=== PATIENT | female | born 1995 | race Caucasian/White ===

== ENCOUNTER 2022-09-27 13:07 | Outpatient (REF) | payer OTHER, SELFPAY | END 2022-09-27 13:08 | disposition home or self-care (01) | LOC: HO.LNP 13:07 | PROVIDERS: Visit Provider Advanced Practice Midwife | DX: Z30.432 Encounter for removal of intrauterine contraceptive device (principal) | CPT/HCPCS: 58301; 88142 ==

== ENCOUNTER → 2022-10-30 09:06 | Outpatient (BNVA) | payer OTHER, SELFPAY | PROVIDERS: Visit Provider Advanced Practice Midwife | DX: Z32.01 Encounter for pregnancy test, result positive (principal) | CPT/HCPCS: 81025; 99212 ==

== ENCOUNTER 2022-11-01 14:01 | Outpatient (REF) | payer OTHER, SELFPAY ==
--- NOTE | ~2022-11-01 | US_ITS ---
EXAMINATION: US OBSTETRICAL ULTRASOUND CLINICAL INFORMATION: ; for size and dates. COMPARISON: Obstetrical ultrasound dated 09/21/2016.. LMP: 09/12/2022. Gestational age by maternal dates is 7 weeks and 1 day. Estimated date of delivery by maternal dates is 06/19/2023. TECHNIQUE: Ultrasound of the maternal pelvis is performed using transabdominal transducer. M-mode Doppler is also performed. FINDINGS: There is a single intrauterine gestational sac with visible yolk sac, embryo/fetus, and cardiac activity. There is no significant subchorionic hemorrhage or hematoma. HR: 109 beats per minute. CRL (crown rump length): 0.42 cm (6 weeks and 1 day +/- 4 days). SADI (estimated date of delivery): 06/26/2023. +/- 4 days. MATERNAL ADNEXA: The right maternal ovary measures 4.5 x 2.3 x 1.9 cm. The left maternal ovary is not visualized. There is no significant maternal adnexal mass. No maternal pelvic ascites. US/US OB <= 14 weeks fetus IMPRESSION: 1. Single intrauterine gestation with ultrasound gestational age of 6 weeks and 1 day +/- 4 days. 2. Estimated date of delivery is 06/26/2023 +/- 4 days. 3. No maternal adnexal mass or pelvic ascites.
== END 2022-11-01 14:02 | disposition home or self-care (01) ==
LOC: HO.HMGCX 14:01
PROVIDERS: Visit Provider Advanced Practice Midwife
DX: Z36.87 Encounter for antenatal screening for uncertain dates (principal); Z32.01 Encounter for pregnancy test, result positive
CPT/HCPCS: 76801

== ENCOUNTER → 2022-11-09 13:43 | Outpatient (BNVA) | payer OTHER, SELFPAY | PROVIDERS: Visit Provider Advanced Practice Midwife | DX: O26.91 Pregnancy related conditions, unspecified, first trimester (principal); Z3A.00 Weeks of gestation of pregnancy not specified | CPT/HCPCS: 99212 ==

== ENCOUNTER → 2022-11-26 14:04 | Outpatient (BNVA) | payer OTHER, SELFPAY | PROVIDERS: Visit Provider Advanced Practice Midwife | DX: O26.91 Pregnancy related conditions, unspecified, first trimester (principal); Z3A.09 9 weeks gestation of pregnancy | CPT/HCPCS: 99212 ==

== ENCOUNTER 2022-12-07 12:48 | Outpatient (REF) | payer OTHER, SELFPAY ==
[2022-12-07 14:47] LABS: Hematocrit 36.1 % (37.0-47.0); Hemoglobin 12.2 g/dl (12.0-16.0); Mean Corpuscular HGB Conc 33.8 g/dl (31.0-35.0); Mean Corpuscular Hemoglobin 29.5 pg (27.0-33.0); Mean Corpuscular Volume 87.4 fL (80.0-98.0); Platelet Count 238 X10*3/uL (160-400); Red Blood Count 4.13 X10*6/uL (4.20-5.50); Red Cell Distribution Width 13.2 % (11.0-16.0); White Blood Count 9.8 X10*3/uL (4.8-10.8)
[2022-12-07 15:03] LABS: Amphetamine Screen Urine Not Detected (Not Detect); Barbiturates, Urine Not Detected (Not Detect); Benzodiazepines Screen Urine Not Detected (Not Detect); Cannabinoid Screen Urine Not Detected (Not Detect); Cocaine Screen Urine Not Detected (Not Detect); Fentanyl, urine Not Detected (Not Detect); Opiate Screen Urine Not Detected (Not Detect); Phencyclidine Screen Urine Not Detected (Not Detect)
[2022-12-07 16:13] LABS: Glucose 1 Hour PP 50gm Dose 81 mg/dL (60-140)
[2022-12-10 03:49] LABS: Syphilis Screen Nonreactive (Nonreactive)
[2022-12-10 04:07] LABS: HBsAGNum1 0.38 S/CO (0.00-0.99); HIV AB/AG Nonreactive (Nonreactive); HIV Num 1 0.05 S/CO (0.00-0.99); Hepatitis B Surface Antigen Negative (Negative); ~HepC Num1 0.11 S/CO (0.00-0.79); ~Hepatitis C Antibody Nonreactive (Nonreactive)
[2022-12-11 06:04] LABS: Rubella IgG Antibody 4.24 Index
[2022-12-17 14:58] LABS: CF Ethnicity NG; Cystic Fibrosis NEGATIVE (NEGATIVE)
== END 2022-12-07 12:49 | disposition home or self-care (01) ==
LOC: HO.LAB 12:48
PROVIDERS: Visit Provider Advanced Practice Midwife
DX: Z32.01 Encounter for pregnancy test, result positive (principal)
CPT/HCPCS: 80307; 81220; 82950; 85027; 86762; 86780; 86787; 86803; 86850; 86900; 87086; 87340; 87389

== ENCOUNTER 2022-12-14 13:32 | Outpatient (REF) | payer OTHER, SELFPAY ==
[2022-12-14 17:14] LABS: CT PCR NOT DETECTED (Not Detect.); NG PCR NOT DETECTED (Not Detect.)
[2022-12-15 10:13] LABS: BV Int Neg Control Negative (Negative); BV Int Pos Control Positive (Positive)
== END 2022-12-14 13:33 | disposition home or self-care (01) ==
LOC: HO.LNP 13:32
PROVIDERS: Visit Provider Advanced Practice Midwife
DX: O26.91 Pregnancy related conditions, unspecified, first trimester (principal)
CPT/HCPCS: 0353U; 81003; 87480; 87510; 87660; 99212

== ENCOUNTER → 2023-01-15 10:41 | Outpatient (BNVA) | payer OTHER, SELFPAY | PROVIDERS: Visit Provider Advanced Practice Midwife | DX: O21.0 Mild hyperemesis gravidarum (principal); O26.892 Other specified pregnancy related conditions, second trimester; R19.7 Diarrhea, unspecified; Z3A.16 16 weeks gestation of pregnancy; Z83.3 Family history of diabetes mellitus | CPT/HCPCS: 81003; 99212 ==

== ENCOUNTER 2023-02-13 10:25 | Outpatient (REF) | payer OTHER, SELFPAY ==
[2023-02-13 13:13] LABS: Appearance Urine Turbid; Color Urine Yellow; Glucose Urine UA Negative (Negative); Leukocyte Esterase Urine Small (1+) (Negative); Nitrite Urine Negative (Negative); PH 6.5 (5.0-9.0); Specific Gravity - Urine 1.015 (1.005-1.025); UMIC TRIGGER UACC YES; Urine Blood Negative (Negative); Urine Ketones Negative (Negative); Urine Protein Negative (Neg-Trace)
[2023-02-13 13:23] LABS: Bacteria Urine 1+ (None Seen); Hyaline Casts Urine 0-2 /LPF (0-2); RBC Urine 0-2 /HPF (0-2); UACC Culture Trigger YES
== END 2023-02-13 10:26 | disposition home or self-care (01) ==
LOC: HO.LAB 10:25
PROVIDERS: Visit Provider Advanced Practice Midwife
DX: O26.892 Other specified pregnancy related conditions, second trimester (principal); M54.50 Low back pain, unspecified; Z3A.21 21 weeks gestation of pregnancy
CPT/HCPCS: 81001; 81003; 87086; 99212

== ENCOUNTER 2023-02-14 13:19 | Outpatient (REF) | payer OTHER, SELFPAY ==
[2023-02-14 14:10] LABS: Appearance Urine Clear; Color Urine Yellow; Glucose Urine UA Negative (Negative); Leukocyte Esterase Urine Moderate (2+) (Negative); Nitrite Urine Negative (Negative); UMIC TRIGGER UACC YES; Urine Blood Negative (Negative); Urine Ketones Negative (Negative); Urine Protein Negative (Neg-Trace)
[2023-02-14 14:19] LABS: Bacteria Urine 2+ (None Seen); Hyaline Casts Urine 0-2 /LPF (0-2); RBC Urine 0-2 /HPF (0-2); UACC Culture Trigger YES; WBC Urine 21-50 /HPF (0-5)
== END 2023-02-14 13:20 | disposition home or self-care (01) ==
LOC: HO.LAB 13:19
PROVIDERS: PCP Internal Medicine; Visit Provider Advanced Practice Midwife
DX: O26.899 Other specified pregnancy related conditions, unspecified trimester (principal); R10.2 Pelvic and perineal pain; M54.50 Low back pain, unspecified
CPT/HCPCS: 81001; 81003

== ENCOUNTER → 2023-03-13 09:17 | Outpatient (BNVA) | payer OTHER, SELFPAY | PROVIDERS: PCP Internal Medicine; Visit Provider Advanced Practice Midwife | DX: O36.5920 Maternal care for other known or suspected poor fetal growth, second trimester, not applicable or unspecified (principal); Z3A.25 25 weeks gestation of pregnancy | CPT/HCPCS: 81003; 99212 ==

== ENCOUNTER 2023-04-05 13:20 | Outpatient (REF) | payer OTHER, SELFPAY | END 2023-04-05 13:21 | disposition home or self-care (01) | LOC: HO.LAB 13:20 | PROVIDERS: PCP Internal Medicine; Visit Provider Advanced Practice Midwife | DX: Z34.93 Encounter for supervision of normal pregnancy, unspecified, third trimester (principal); Z3A.28 28 weeks gestation of pregnancy | CPT/HCPCS: 99212 ==

== ENCOUNTER 2023-04-05 13:27 | Outpatient (AMB) | payer OTHER, SELFPAY ==
[2023-04-05 13:44] VITALS: BMI 25.6
--- NOTE | 2023-04-05 13:44 | A.OFFVISPN_ITS ---
Intake Vital Signs 04/05/23 13:44 04/05/23 14:11 Height 5 ft 5 in Weight 154 lb BMI 25.6 BP 108/60 Intake Visit Reasons: FOREST Brim Raiser Required: No Information Interpreted: non-clinical & clinical Accompanied by: Daughter Allergies No Known Allergies [No Known Allergies*] Allergy (Verified 04/05/23 13:44) Patient : Yes PFSH Medical History (Updated 04/05/23 @ 14:12 by Gwen Kiser) Cleft lip and palate Diarrhea during Encounter for supervision of normal in third trimester Encounter for supervision of other normal in second trimester FH: diabetes mellitus Surgical History (Updated 01/15/23 @ 11:00 by Gwen Kiser) History of repair of cleft lip History of repair of congenital cleft palate Nausea/vomiting in Family History Maternal Grandmother Breast cancer Maternal Grandfather No problems noted. Father Diabetes mellitus CAD (coronary artery disease) Myocardial infarction Mother Bipolar 1 disorder, depressed, full remission Fibromyalgia Social History Household Members: Significant Other, Family and Children Both parents involved: Yes Caregiver staying overnight: No Housing: House Are you a primary medicare insurance specialist to a significant other at home: No Do you presently have visiting nurse or other home services: No 75 years or older and lives alone: No Alcohol intake: never Patient Tobacco Use Status: Never used Tobacco Agree to transfusion: Yes service: No Current occupational status: employed 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 Date GA/Weeks Outcome Route Wt Inf Gender Labor Adeline Anesthesia Location Provider Complicate 10/04/16 41 live - full term 6 lb 15 oz Female 11 hrs ot her [facility] JUSTINE Ruggiero none Questionnaire Cantrall Depression Cantrall Depression Scale I have been able to laugh and see the funny side of things: Not at all I have looked forward with enjoyment to things: As much as I ever did I have blamed myself unnecessarily when things went wrong: Not very often I have been anxious or worried for no reason: Yes, sometimes I have felt scared of panicky for no very good reason at all: No, not at all Things have been getting on top of me: No, most of the time I have coped quite well I have been so unhappy that I have had difficulty sleeping: Not very often I have felt sad or miserable: Not very often I have been so unhappy that I have been crying: Only occasionally The thought of harming myself has occurred to me: Never 10 Visit SADI Calculator Estimated Delivery Date Method Current WG Current Estimate 06/26/23 Ultrasound #1 28w 2d Other Estimates 06/19/23 LMP (Certain) 29w 2d 06/27/23 Ultrasound #2 28w 1d Expected Delivery Route/Plan Specific Issues/Plans EDC: 06/26/23 O positive Problem List: Hx cleft lip/palate FH DM-early glucose=81 Fibroids on FAS: pending results... NT: nl First trimester screen: negative FAS: WIC: enrolled Vaccination status: COVID: 1 dose, Covid in 09/2021 Tdap: Flu: Social hx: lives w/husb, 6yo daughter. 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-?-?-?-?- 02/13/23 -?-?-?-?-?-?-?-?-?-?-?-?- 21w 0d 147 lb (+8 lb) 22 150 100/60 147 lb -?-?-?-?-?-?-?-?-?-?-?-?- 03/13/23 -?-?-?-?-?-?-?-?-?-?-?-?- 25w 0d 149 lb (+10 lb) 22 140 active 112/64 149 lb -?-?-?-?-?-?-?-?-?-?-?-?- 04/05/23 -?-?-?-?-?-?-?-?-?-?-?-?- 28w 2d 154 lb (+15 lb) 26 140 active 108/60 154 lb -?-?-?-?-?-?-?-?-?-?-?-?- Notes Visit Date: 04/05/23 Last Updated by: Yulia Han CNM Note author: Yulia Han CNM/[facility] 28.2 wk FOREST. Feeling well. Taking PNV. Hydrating well and good appetite Good FM, no LOF, VB or abd pain. Reports lumbar pain. Denies lifting anything strenuous. EPDS=7 Discussed: PTL - LOF, VB, abd pain . TDaP handout given. lab work. Recommend pelvic tilt exercises/stretches, heat, massage, consider PT if no improvement. Advised to eat small frequent meals and stay cool and hydrated. PEC - headaches: not resolved with 2 regular strength Tylenol doses, visual disturbances warnings and when to call for further evaluation. Reviewed when to call for any VB, LOF, contractions, Kick counts reviewed and when to call for any decreased FM. Encouraged patient to sign up for patient portal. Discussed to call the service here for any emergencies/deliveries to be directed to [facility]. Visit Date: 03/13/23 Last Updated by: Yulia Han CNM Note author: Yulia Han CNM/Gwen Kiser medical assistant prn 25 wk FOREST. Feeling well. Taking PNV. Hydrating well and good appetite Good FM, no LOF, VB or abd pain. Reports possibly being sick occasional nausea/vomiting with diarrhea. Denies being sensitive to diary or gluten or flu-like symptoms. Discussed: PTL - LOF, VB, abd pain. Schedule growth US-SFD. FAS report from [facility] requesting. OB appointment in 3 weeks and glucose testing same day. BRAT diet for nausea Advised to eat small frequent meals and stay cool and hydrated. Recommend reading and online classes/research for educational purposes. PEC - headaches: not resolved with 2 regular strength Tylenol doses, visual disturbances warnings and when to call for further evaluation. Reviewed when to call for any VB, LOF, contractions, Kick counts reviewed and when to call for any decreased FM. Discussed to call the service here for any emergencies/deliveries to be directed to [facility]. Visit Date: 02/13/23 Last Updated by: Yulia Han CNM Note author: Yulia Han CNM/Gwen Kiser medical assistant prn 21 wk FOREST. Feeling well. Taking PNV. Good FM, no LOF, VB. She recently had a US last wk., report not available. She is experiencing occasional abdominal cramping and lower back pain. Denies Comal Betancourt. Admits to needing to hydrate better today. Discussed: PTL - LOF, VB, abd pain. Recommend 3 glasses 8 ounces of water to help with abdominal cramping, hot weather this week-stay cool, increase fluids. If cramping gets worse report to [facility]. Reviewed recent lab results. Advised to eat healthy including small frequent meals every 2 hrs and stay hydrated in hot weather. PEC - headaches: not resolved with 2 regular strength. Tylenol doses, visual disturbances warnings and when to call for further evaluation. Reviewed when to call for any VB, LOF, contractions, Kick counts reviewed and when to call for any decreased FM. Discussed to call the service here for any emergencies/deliveries to be directed to [facility]. Unable to void, plan urine in lab today for clean catch. RTO 4 wks, prn. Visit Date: 01/15/23 Last Updated by: Yulia Han CNM Note author: Yulia Han CNM/Gwen Kiser medical assistant prn 16.6wk FOREST. Feeling well. Taking PNV. quickening noted, no LOF, VB or abd pain. She reports over the past weekend she had nausea, vomiting and diarrhea with slight abdominal cramping. Appetite slowly improving. No other family members were sick. Staying well hydrated. Call office if not tolerating fluids and not urinating. FAS ordered. PEC - headaches: not resolved with 2 regular strength Tylenol doses, visual disturbances warnings and when to call for further evaluation. Reviewed when to call for any VB, LOF, contractions, Kick counts reviewed and when to call for any decreased FM. Encouraged patient to sign up for patient portal. Discussed to call the service here for any emergencies/deliveries to be directed to [facility]. RTO 4wks. Visit Date: 12/14/22 Last Updated by: Yuliana Lawrence CNM Patient is here at 12 weeks and 2 days for her new OB physical. 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 She got the next cycle and we are using the SADI by her for early ultrasound which gave a 1 week different SADI we are using the 06/26/2023 SADI. She had her nuchal translucency ultrasound done a week ago and that was normal the 1st trimester screening is still pending. All of her lab work was reviewed and is all normal she is not anemic her blood type is O-positive her early glucose was 81. There nausea is finally starting to get better she did throw up a little bit this morning but the previous 3 morning she did not so she is feeling better about that. She did score 7 on the EPDS screening today but she does not think she has any real worries or concerns she thinks her worries are actually the normal ones about what it will be like to have another baby and manage everything.. PE was done there was slight bleeding when the speculum opened and touched the side of her cervix from the surface capillaries. I did show it to her so she would not be worried about where at we had come from. Her cervix did not a ppear unduly friable just normal for per early . Uterus is approximately 12 weeks size but slightly retroverted. Patient states she did not even show with her previous in till 18-20 weeks. Anticipate the same this time. Will be ordering her anatomy scan ultrasound in approximately 7 weeks (6-8) that will be done at [facility]. RTC 4 weeks. Visit Date: 11/26/22 Last Updated by: Ayanna Miranda Nancy is here for nurse intake appt. She is a pleasant, 27 yo in good health, with LMP 09/12/22 SADI by dates 06/21/23. US on 11/01/22 at 6w1d gives SADI of 06/26/23 and GA by US today of 9w5d. FHT found 144. 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 She also has FH of diabetes and a 1 hr glucose has been ordered. Maternal grandmother d/t breast cancer, paternal grandfather d/t lung cancer. Pt's Mom has fibromyalgia and bipolar disorder. Dad has CAD, [place], bipolar disorder. Nancy and her significant other of 8 years are excited about the . Her partner is the FOB of both pregnancies. Their daughter is 6 yo. She reports her SO is supportive and she denies any h/o domestic abuse. Nancy takes her PNV in the evening. She does have nausea and vomiting in the morning which she reports is beginning to resolve. We discussed small frequent meals and trying dry crackers at first awakening before getting out of bed to help nausea. She declined Unisom/B6. Pt reports she has not had Covid-19 and has been vaccinated x1, no boosters. Her BMI is 27.1 and prepregnancy weight is 139 lbs. OB PE was scheduled for 12/14/22, labs with early glucose ordered as well [place] [facility] [place] She is aware that she [place] [facility] [place] Pt was given the folder. We discussed danger signs, MD coverage 08/04 and how to reach MD after hours. First trimester education was also reviewed. Pt verbalizes understanding and agrees with plan. No further questions at this time. Assessment & Plan Assessment & Plan (1) Encounter for supervision of normal in third trimester: Code(s): Z34.93 - Encounter for supervision of normal , unspecified, third trimester Category: Medical Coding Level of Care Code [place] Diagnoses Encounter for supervision of normal in third trimester Z34.93
[2023-04-05 14:11] VITALS: BP 108/60
== END 2023-04-05 14:27 | disposition home or self-care (01) ==
LOC: HO.HWS 13:27
PROVIDERS: PCP Internal Medicine; Visit Provider Advanced Practice Midwife
DX: Z34.93 Encounter for supervision of normal pregnancy, unspecified, third trimester (principal)
CPT/HCPCS: 25942; S3005

== ENCOUNTER 2023-04-11 10:41 | Outpatient (REF) | payer OTHER, SELFPAY ==
[2023-04-11 12:00] LABS: Appearance Urine Cloudy; Color Urine Yellow; Glucose Urine UA Negative (Negative); Leukocyte Esterase Urine Small (1+) (Negative); Nitrite Urine Negative (Negative); PH 8.5 (5.0-9.0); UMIC TRIGGER UACC YES; Urine Blood Negative (Negative); Urine Ketones Negative (Negative); Urine Protein Negative (Neg-Trace)
[2023-04-11 12:15] LABS: Bacteria Urine None Seen (None Seen); Hyaline Casts Urine 0-2 /LPF (0-2); RBC Urine 0-2 /HPF (0-2); UACC Culture Trigger YES; WBC Urine 0-5 /HPF (0-5)
[2023-04-11 13:57] LABS: Hematocrit 35.6 % (37.0-47.0); Hemoglobin 11.9 g/dl (12.0-16.0); Mean Corpuscular HGB Conc 33.4 g/dl (31.0-35.0); Mean Corpuscular Hemoglobin 30.4 pg (27.0-33.0); Mean Platelet Volume 9.9 fL (9.4-12.3); Platelet Count 257 X10*3/uL (160-400); Red Blood Count 3.91 X10*6/uL (4.20-5.50); Red Cell Distribution Width 13.8 % (11.0-16.0)
[2023-04-11 14:27] LABS: Glucose 1 Hour PP 50gm Dose 71 mg/dL (60-140)
[2023-04-11 14:45] LABS: Syphilis Screen Nonreactive (Nonreactive)
== END 2023-04-11 10:42 | disposition home or self-care (01) ==
LOC: HO.LAB 10:41
PROVIDERS: Visit Provider Advanced Practice Midwife
DX: Z34.82 Encounter for supervision of other normal pregnancy, second trimester (principal)
CPT/HCPCS: 36415; 81001; 81003; 82950; 85027; 86780; 87086

== ENCOUNTER 2023-04-19 10:45 | Outpatient (AMB) | payer OTHER, SELFPAY ==
--- NOTE | 2023-04-19 10:54 | MHC.OFFVISPN ---
Intake Vital Signs 04/19/23 10:59 Height 5 ft 5 in Weight 153 lb BMI 25.5 BP 108/60 Intake Visit Reasons: FOREST Intake Note: The patient agreed to use of a medical radiation tech during this encounter. Scribed for STEPHANIE Whipple by Elen Salas medical radiation tech, on 04/19/2023 at 11:05 am EST Compounder Helper Required: No Information Interpreted: non-clinical & clinical Accompanied by: Daughter Allergies No Known Allergies [No Known Allergies*] Allergy (Verified 04/19/23 10:59) Patient : Yes [facility] Medical History (Updated 04/19/23 @ 14:01 by Elen Salas) Cleft lip and palate Diarrhea during Encounter for supervision of normal in third trimester Encounter for supervision of other normal in second trimester FH: diabetes mellitus Surgical History (Updated 01/15/23 @ 11:00 by Gwen Kiser) History of repair of cleft lip History of repair of congenital cleft palate Nausea/vomiting in Family History Maternal Grandmother Breast cancer Maternal Grandfather No problems noted. Father Diabetes mellitus CAD (coronary artery disease) Myocardial infarction Mother Bipolar 1 disorder, depressed, full remission Fibromyalgia Social History Household Members: Significant Other, Family and Children Both parents involved: Yes Caregiver staying overnight: No Housing: House Are you a primary healthcare facility administrator to a significant other at home: No Do you presently have visiting nurse or other home services: No 75 years or older and lives alone: No Alcohol intake: never Patient Tobacco Use Status: Never used Tobacco Agree to transfusion: Yes service: No Current occupational status: employed 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 Date GA/Weeks Outcome Route Wt Inf Gender Labor Adeline Anesthesia Location Provider Complicate 10/04/16 41 live - full term 6 lb 15 oz Female 11 hrs other [facility] [place] JUSTINE Ruggiero none Visit SADI Calculator Estimated Delivery Date Method Current WG Current Estimate 10/11/23 Ultrasound #1 30w 2d Other Estimates 06/19/23 LMP (Certain) 31w 2d 06/27/23 Ultrasound #2 30w 1d Expected Delivery Route/Plan Specific Issues/Plans EDC: 06/26/23 O positive Problem List: 1. Hx cleft lip/palate 2. FH DM-early glucose=81 3. Fibroids 4. SFD-US 03/18/23 41% growth, plan repeat... NT: nl First trimester screen: negative FAS: EIF noted, plan 3rd trimester follow US. WIC: enrolled Vaccination status: COVID: 1 dose, Covid in 09/2021 Tdap: given 04/19/23 Flu: Social hx: lives w/husb, 6yo daughter. 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 Labor support: Max plan: natrural, used Nitrous oxide w/her first control: OB Visit Log Initial Weight: 139 lb Date <del>?</del> EGA Weight Gest Week Fundal Ht Present FHR move Efface % Edema BP PrePreg We Weight GTT <del>?</del> Glucose LV Protein Blood Type 11/26/22 <del>?</del> 9w 5d 139 lb 2 oz (+2 oz) 144 139 lb 2 oz <del>?</del> 12/14/22 <del>?</del> 12w 2d 139 lb (+0 oz) 12 160 114/60 139 lb <del>?</del> 01/15/23 <del>?</del> 16w 6d 137 lb (-2 lb) 16 150 110/74 137 lb <del>?</del> 02/13/23 <del>?</del> 21w 0d 147 lb (+8 lb) 22 150 100/60 147 lb <del>?</del> 03/13/23 <del>?</del> 25w 0d 149 lb (+10 lb) 22 140 active 112/64 149 lb <del>?</del> 04/05/23 <del>?</del> 28w 2d 154 lb (+15 lb) 26 140 active 108/60 154 lb <del>?</del> 04/19/23 <del>?</del> 30w 2d 153 lb (+14 lb) 27 150 active 108/60 153 lb <del>?</del> Notes Visit Date: 04/19/23 Last Updated by: Yulia Han CNM Note author: Yulia Han CNM/Elen Salas, medical radiation tech 30.2 wk FOREST. Taking PNV. Good FM. Denies LOF, VB or abd pain. Doing well with no concerns. Good appetite and stays well hydrated. She had Growth US done on 04/07/23, records not available. States she is supposed to have repeat US done due to a bright spot noted. Discussed: PTL-LOF, VB, abd pain, ctx and when to call for further evaluation. PEC - headaches: not resolved with 2 regular strength Tylenol doses, visual disturbances warnings and when to call for further evaluation.? FKC: have something to eat and drink, should have 5 kicks in 1hr or 10 kicks in 2 hrs, if not call immediately for evaluation. Staying well hydrated, drink 8-10 glasses of water per day. Tdap done today. Growth US ordered for small for dates, include eval for EIF 3rd trimester follow up. RTO in 2 weeks. Visit Date: 04/05/23 Last Updated by: Yulia Han CNM Note author: Yulia Han CNM/Gwen Kiser medical radiation tech 28.2 wk FOREST. Feeling well. Taking PNV. Hydrating well and good appetite Good FM, no LOF, VB or abd pain. Reports lumbar pain. Denies lifting anything strenuous. EPDS=7 Discussed: PTL - LOF, VB, abd pain . TDaP handout given. lab work. Recommend pelvic tilt exercises/stretches, heat, massage, consider PT if no improvement. Advised to eat small frequent meals and stay cool and hydrated. PEC - headaches: not resolved with 2 regular strength Tylenol doses, visual disturbances warnings and when to call for further evaluation. Reviewed when to call for any VB, LOF, contractions, Kick counts reviewed and when to call for any decreased FM. Encouraged patient to sign up for patient portal. Discussed to call the service here for any emergencies/deliveries to be directed to [facility]. Visit Date: 03/13/23 Last Updated by: Yulia Han CNM Note author: Yulia Han CNM/Gwen Kiser medical radiation tech 25 wk FOREST. Feeling well. Taking PNV. Hydrating well and good appetite Good FM, no LOF, VB or abd pain. Reports possibly being sick occasional nausea/vomiting with diarrhea. Denies being sensitive to diary or gluten or flu-like symptoms. Discussed: PTL - LOF, VB, abd pain. Schedule growth US-SFD. FAS report from [facility] requesting. OB appointment in 3 weeks and glucose testing same day. BRAT diet for nausea Advised to eat small frequent meals and stay cool and hydrated. Recommend reading and online classes/research for educational purposes. PEC - headaches: not resolved with 2 regular strength Tylenol doses, visual disturbances warnings and when to call for further evaluation. Reviewed when to call for any VB, LOF, contractions, Kick counts reviewed and when to call for any decreased FM. Discussed to call the service here for any emergencies/deliveries to be directed to [facility]. Visit Date: 02/13/23 Last Updated by: Yulia Han CNM Note author: Yulia Han CNM/Gwen Kiser medical radiation tech 21 wk FOREST. Feeling well. Taking PNV. Good FM, no LOF, VB. She recently had a US last wk., report not available. She is experiencing occasional abdominal cramping and lower back pain. Denies [place] [facility]. Admits to needing to hydrate better today. Discussed: PTL - LOF, VB, abd pain. Recommend 3 glasses 8 ounces of water to help with abdominal cramping, hot weather this week-stay cool, increase fluids. If cramping gets worse report to [facility]. Reviewed recent lab results. Advised to eat healthy including small frequent meals every 2 hrs and stay hydrated in hot weather. PEC - headaches: not resolved with 2 regular strength. Tylenol doses, visual disturbances warnings and when to call for further evaluation. Reviewed when to call for any VB, LOF, contractions, Kick counts reviewed and when to call for any decreased FM. Discussed to call the service here for any emergencies/deliveries to be directed to [facility]. Unable to void, plan urine in lab today for clean catch. RTO 4 wks, prn. Visit Date: 01/15/23 Last Updated by: Yuila Han CNM Note author: Yulia Han CNM/Gwen Kiser medical radiation tech 16.6wk FOREST. Feeling well. Taking PNV. quickening noted, no LOF, VB or abd pain. She reports over the past weekend she had nausea, vomiting and diarrhea with slight abdominal cramping. Appetite slowly improving. No other family members were sick. Staying well hydrated. Call office if not tolerating fluids and not urinating. FAS ordered. PEC - headaches: not resolved with 2 regular strength Tylenol doses, visual disturbances warnings and when to call for further evaluation. Reviewed when to call for any VB, LOF, contractions, Kick counts reviewed and when to call for any decreased FM. Encouraged patient to sign up for patient portal. Discussed to call the service here for any emergencies/deliveries to be directed to [facility]. RTO 4wks. Visit Date: 12/14/22 Last Updated by: Yuliana Lawrence CNM Patient is here at 12 weeks and 2 days for her new OB physical. 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 She got the next cycle and we are using the SADI by her for early ultrasound which gave a 1 week different SADI we are using the 06/26/2023 SADI. She had her nuchal translucency ultrasound done a week ago and that was normal the 1st trimester screening is still pending. All of her lab work was reviewed and is all normal she is not anemic her blood type is O-positive her early glucose was 81. There nausea is finally starting to get better she did throw up a little bit this morning but the previous 3 morning she did not so she is feeling better about that. She did score 7 on the EPDS screening today but she does not think she has any real worries or concerns she thinks her worries are actually the normal ones about what it will be like to have another baby and manage everything.. PE was done there was slight bleeding when the speculum opened and touched the side of her cervix from the surface capillaries. I did show it to her so she would not be worried about where at we had come from. Her cervix did not appear unduly friable just normal for per early . Uterus is approximately 12 weeks size but slightly retroverted. Patient states she did not even show with her previous in till 18-20 weeks. Anticipate the same this time. Will be ordering her anatomy scan ultrasound in approximately 7 weeks (6-8) that will be done at [facility]. RTC 4 weeks. Visit Date: 11/26/22 Last Updated by: Ayanna Mora Ruben Cruz is here for nurse intake appt. She is a pleasant, 27 yo in good health, with LMP 09/12/22 SADI by dates 06/21/23. US on 11/01/22 at 6w1d gives SADI of 06/26/23 and GA by US today of 9w5d. FHT found 144. 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 She also has FH of diabetes and a 1 hr glucose has been ordered. Maternal grandmother d/t breast cancer, paternal grandfather d/t lung cancer. Pt's Mom has fibromyalgia and bipolar disorder. Dad has CAD, CA, bipolar disorder. Nancy and her significant other of 8 years are excited about the . Her partner is the FOB of both pregnancies. Their daughter is 6 yo. She reports her SO is supportive and she denies any h/o domestic abuse. Nancy takes her PNV in the evening. She does have nausea and vomiting in the morning which she reports is beginning to resolve. We discussed small frequent meals and trying dry crackers at first awakening before getting out of bed to help nausea. She declined Unisom/B6. Pt reports she has not had Covid-19 and has been vaccinated x1, no boosters. Her BMI is 27.1 and prepregnancy weight is 139 lbs. OB PE was scheduled for 12/14/22, labs with early glucose ordered as well as NT US at [facility]. She is aware that she will deliver at [facility]. Pt was given the folder. We discussed danger signs, MD coverage 08/04 and how to reach MD after hours. First trimester education was also reviewed. Pt verbalizes understanding and agrees with plan. No further questions at this time. Immunizations Boostrix Tdap Performing Provider: Yulia Han CNM Administered by: Ayanna Miranda on 04/19/23 11:41 Dose Route Admin Location Lot Number Expiration Date [facility] [employer] Techn[employer] 0.5 mL IM Left Deltoid [id number] 08/10/24 [id number] [employer] VIS Given Date VIS Provided VIS Publication Date 04/19/23 Single Vaccine 21 Eligibility Eligibility Date Funding Source Not [facility] Eligible 04/19/23 Private Assessment & Plan Assessment & Plan (1) Encounter for supervision of normal in third trimester: Code(s): Z34.93 - Encounter for supervision of normal , unspecified, third trimester Category: Medical (2) Small for dates affecting management of mother: Code(s): O36.5990 - Maternal care for other known or suspected poor growth, unspecified trimester, not applicable or unspecified (3) echogenic intracardiac focus on ultrasound: Code(s): O28.3 - Abnormal ultrasonic finding on screening of mother Orders: Orders US OB follow up Today O28.3 - Abnormal ultrasonic finding on screening of mother, O36.5990 - Maternal care for other known or suspected poor growth, unspecified trimester, not applicable or unspecified TDaP Immunization Today Z34.93 - Encounter for supervision of normal , unspecified, third trimester Coding Level of Care Code [place] [facility] Encounter for supervision of normal in third trimester Z34.93 Small for dates affecting management of mother O36.5990 echogenic intracardiac focus on ultrasound O28.3
[2023-04-19 10:59] VITALS: BP 108/60; BMI 25.5
== END 2023-04-19 11:35 | disposition home or self-care (01) ==
LOC: HO.HWS 10:45
PROVIDERS: PCP Internal Medicine; Visit Provider Advanced Practice Midwife
DX: O36.5990 Maternal care for other known or suspected poor fetal growth, unspecified trimester, not applicable or unspecified (principal); O28.3 Abnormal ultrasonic finding on antenatal screening of mother
CPT/HCPCS: 25942

== ENCOUNTER → 2023-04-19 10:45 | Outpatient (BNVA) | payer OTHER, SELFPAY | PROVIDERS: PCP Internal Medicine; Visit Provider Advanced Practice Midwife | DX: O36.5930 Maternal care for other known or suspected poor fetal growth, third trimester, not applicable or unspecified (principal); O28.3 Abnormal ultrasonic finding on antenatal screening of mother; Z23 Encounter for immunization; Z3A.30 30 weeks gestation of pregnancy | CPT/HCPCS: 90471; 90715; 99212 ==

== ENCOUNTER 2023-05-03 15:48 | Outpatient (AMB) | payer OTHER, SELFPAY ==
[2023-05-03 15:55] VITALS: BP 100/60; BMI 26.8
--- NOTE | 2023-05-03 15:55 | A.OFFVISPN_ITS ---
Intake Vital Signs 05/03/23 15:55 Height 5 ft 5 in Weight 161 lb BMI 26.8 BP 100/60 Intake Visit Reasons: segundo Intake Note: The patient agreed to use of a medical record librarians teacher during this encounter. Scribed for STEPHANIE Whipple by Gwen Kiser medical record librarians teacher, on 05/03/2023 at 4:00 pm EST. Medication Care Manager Required: No Information Interpreted: non-clinical & clinical Accompanied by: Daughter Allergies No Known Allergies [No Known Allergies*] Allergy (Verified 05/03/23 15:56) Patient : Yes [facility] Medical History (Updated 04/19/23 @ 14:01 by Elen Salas) Cleft lip and palate Diarrhea during Encounter for supervision of normal in third trimester Encounter for supervision of other normal in second trimester FH: diabetes mellitus Surgical History (Updated 01/15/23 @ 11:00 by Gwen Kiser) History of repair of cleft lip History of repair of congenital cleft palate Nausea/vomiting in Family History Maternal Grandmother Breast cancer Maternal Grandfather No problems noted. Father Diabetes mellitus CAD (coronary artery disease) Myocardial infarction Mother Bipolar 1 disorder, depressed, full remission Fibromyalgia Social History Household Members: Significant Other, Family and Children Both parents involved: Yes Caregiver staying overnight: No Housing: House Are you a primary healthcare associate to a significant other at home: No Do you presently have visiting nurse or other home services: No 75 years or older and lives alone: No Alcohol intake: never Patient Tobacco Use Status: Never used Tobacco Agree to transfusion: Yes service: No Current occupational status: employed 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 Date GA/Weeks Outcome Route Wt Inf Gender Labor Adeline Anesthesia Location Provider Complicate 10/04/16 41 live - full term 6 lb 15 oz Female 11 hrs ot her [facility] JUSTINE Ruggiero none Visit SADI Calculator Estimated Delivery Date Method Current WG Current Estimate 06/26/23 Ultrasound #1 32w 2d Other Estimates 06/19/23 LMP (Certain) 33w 2d 06/27/23 Ultrasound #2 32w 1d Expected Delivery Route/Plan Specific Issues/Plans EDC: 06/26/23 O positive Problem List: 1. Hx cleft lip/palate 2. FH DM-early glucose=81 3. Fibroids 4. SFD-US 03/18/23 41% growth, plan repeat... NT: nl First trimester screen: negative FAS: EIF noted, plan 3rd trimester follow US. WIC: enrolled Vaccination status: COVID: 1 dose, Covid in 09/2021 Tdap: given 04/19/23 Flu: Social hx: lives w/husb, 6yo daughter Anyi. 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-?-?-?-?-?-?-?-?-?- 02/13/23 -?-?-?-?-?-?-?-?-?-?-?-?- 21w 0d 147 lb (+8 lb) 22 150 100/60 147 lb -?-?-?-?-?-?-?-?-?-?-?-?- 03/13/23 -?-?-?-?-?-?-?-?-?-?-?-?- 25w 0d 149 lb (+10 lb) 22 140 active 112/64 149 lb -?-?-?-?-?-?-?-?-?-?-?-?- 04/05/23 -?-?-?-?-?-?-?-?-?-?-?-?- 28w 2d 154 lb (+15 lb) 26 140 active 108/60 154 lb -?-?-?-?-?-?-?-?-?-?-?-?- 04/19/23 -?-?--?-?-?-?-?-?-?-?-?-?- 30w 2d 153 lb (+14 lb) 27 150 active 108/60 153 lb -?-?-?-?-?-?-?-?-?-?-?-?- 05/03/23 -?-?-?-?-?-?-?-?-?-?-?-?- 32w 2d 161 lb (+22 lb) 30 140 active 100/60 161 lb -?-?-?-?-?-?-?-?-?-?-?-?- Notes Visit Date: 05/03/23 Last Updated by: Yulia Han CNM Note author: Yulia Han CNM/Gwen Kiser medical record librarians teacher 32. 2 wk SEGUNDO. Feeling well. Taking PNV. Hydrating well and good appetite Good FM, no LOF, VB or abd pain. She has a upcoming US 05/07/23. Discussed: PTL - LOF, VB, abd pain. Advised to eat small frequent meals, hydrate well with water and stay cool . PEC - headaches: not resolved with 2 regular strength Tylenol doses, visual disturbances warnings and when to call for further evaluation. Reviewed when to call for any VB, LOF, contractions, Kick counts reviewed and when to call for any decreased FM. Encouraged patient to sign up for patient portal. Discussed to call the service here for any emergencies/deliveries to be directed to [facility]. All of her questions and concerns were addressed to the best of my ability and shared decision making. She is agreeable to plan of care. RTO 2wks. Visit Date: 04/19/23 Last Updated by: Yulia Han CNM Note author: Yulia Han CNM/Elen Salas, medical record librarians teacher 30.2 wk SEGUNDO. Taking PNV. Good FM. Denies LOF, VB or abd pain. Doing well with no concerns. Good appetite and stays well hydrated. She had Growth US done on 04/07/23, records not available. States she is supposed to have repeat US done due to a bright spot noted. Discussed: PTL-LOF, VB, abd pain, ctx and when to call for further evaluation. PEC - headaches: not resolved with 2 regular strength Tylenol doses, visual disturbances warnings and when to call for further evaluation.? FKC: have something to eat and drink, should have 5 kicks in 1hr or 10 kicks in 2 hrs, if not call immediately for evaluation. Staying well hydrated, drink 8-10 glasses of water per day. Tdap done today. Growth US ordered for small for dates, include eval for EIF 3rd trimester follow up. RTO in 2 weeks. Visit Date: 04/05/23 Last Updated by: Yulia Han CNM Note author: Yulia Han CNM/Gwen Kiser medical record librarians teacher 28.2 wk SEGUNDO. Feeling well. Taking PNV. Hydrating well and good appetite Good FM, no LOF, VB or abd pain. Reports lumbar pain. Denies lifting anything strenuous. EPDS=7 Discussed: PTL - LOF, VB, abd pain . TDaP handout given. lab work. Recommend pelvic tilt exercises/stretches, heat, massage, consider PT if no improvement. Advised to eat small frequent meals and stay cool and hydrated. PEC - headaches: not resolved with 2 regular strength Tylenol doses, vis ual disturbances warnings and when to call for further evaluation. Reviewed when to call for any VB, LOF, contractions, Kick counts reviewed and when to call for any decreased FM. Encouraged patient to sign up for patient portal. Discussed to call the service here for any emergencies/deliveries to be directed to [facility]. Visit Date: 03/13/23 Last Updated by: Yulia Han CNM Note author: Yulia Han CNM/Gwen Kiser medical record librarians teacher 25 wk SEGUNDO. Feeling well. Taking PNV. Hydrating well and good appetite Good FM, no LOF, VB or abd pain. Reports possibly being sick occasional nausea/vomiting with diarrhea. Denies being sensitive to diary or gluten or flu-like symptoms. Discussed: PTL - LOF, VB, abd pain. Schedule growth US-SFD. FAS report from [facility] requesting. OB appointment in 3 weeks and glucose testing same day. BRAT diet for nausea Advised to eat small frequent meals and stay cool and hydrated. Recommend reading and online classes/research for educational purposes. PEC - headaches: not resolved with 2 regular strength Tylenol doses, visual disturbances warnings and when to call for further evaluation. Reviewed when to call for any VB, LOF, contractions, Kick counts reviewed and when to call for any decreased FM. Discussed to call the service here for any emergencies/deliveries to be directed to [facility]. Visit Date: 02/13/23 Last Updated by: Yulia Han CNM Note author: Yulia Han CNM/Gwen Kiser medical record librarians teacher 21 wk SEGUNDO. Feeling well. Taking PNV. Good FM, no LOF, VB. She recently had a US last wk., report not available. She is experiencing occasional abdominal cramping and lower back pain. Denies Yogesh Betancourt. Admits to needing to hydrate better today. Discussed: PTL - LOF, VB, abd pain. Recommend 3 glasses 8 ounces of water to help with abdominal cramping, hot weather this week-stay cool, increase fluids. If cramping gets worse report to [facility]. Reviewed recent lab results. Advised to eat healthy including small frequent meals every 2 hrs and stay hydrated in hot weather. PEC - headaches: not resolved with 2 regular strength. Tylenol doses, visual disturbances warnings and when to call for further evaluation. Reviewed when to call for any VB, LOF, contractions, Kick counts reviewed and when to call for any decreased FM. Discussed to call the service here for any emergencies/deliveries to be directed to [facility]. Unable to void, plan urine in lab today for clean catch. RTO 4 wks, prn. Visit Date: 01/15/23 Last Updated by: Yulia Han CNM Note author: Yulia Han CNM/Gwen Kiser medical record librarians teacher 16.6wk SEGUNDO. Feeling well. Taking PNV. quickening noted, no LOF, VB or abd pain. She reports over the past weekend she had nausea, vomiting and diarrhea with slight abdominal cramping. Appetite slowly improving. No other family members were sick. Staying well hydrated. Call office if not tolerating fluids and not urinating. FAS ordered. PEC - headaches: not resolved with 2 regular strength Tylenol doses, visual disturbances warnings and when to call for further evaluation. Reviewed when to call for any VB, LOF, contractions, Kick counts reviewed and when to call for any decreased FM. Encouraged patient to sign up for patient portal. Discussed to call the service here for any emergencies/deliveries to be directed to [facility]. RTO 4wks. Visit Date: 12/14/22 Last Updated by: Yuliana Lawrence CNM Patient is here at 12 weeks and 2 days for her new OB physical. She did have her full genetic coordinator physical at the time that she had her ParaGard IUD removed on September 27 and her Pap smear was done then but we did not do cultures at that visit because she had no STD concerns. She got the next cycle and we are using the SADI by her for early ultrasound which gave a 1 week different SADI we are using the 06/26/2023 SADI. She had her nuchal translucency ultrasound done a week ago and that was normal the 1st trimester screening is still pending. All of her lab work was reviewed and is all normal she is not anemic her blood type is O-positive her early glucose was 81. There nausea is finally starting to get better she did throw up a little bit this morning but the previous 3 morning she did not so she is feeling better about that. She did score 7 on the EPDS screening today but she does not think she has any real worries or concerns she thinks her worries are actually the normal ones about what it will be like to have another baby and manage everything.. PE was done there was slight bleeding when the speculum opened and touched the side of her cervix from the surface capillaries. I did show it to her so she would not be worried about where at we had come from. Her cervix did not appear unduly friable just normal for per early . Uterus is approximately 12 weeks size but slightly retroverted. Patient states she did not even show with her previous in till 18-20 weeks. Anticipate the same this time. Will be ordering her anatomy scan ultrasound in approximately 7 weeks (6-8) that will be done at [facility]. RTC 4 weeks. Visit Date: 11/26/22 Last Updated by: Ayanna Miranda Nancy is here for nurse intake appt. She is a pleasant, 27 yo in good health, with LMP 09/12/22 SADI by dates 06/21/23. US on 11/01/22 at 6w1d gives SADI of 06/26/23 and GA by US today of 9w5d. FHT found 144. 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 She also has FH of diabetes and a 1 hr glucose has been ordered. Maternal grandmother d/t breast cancer, paternal grandfather d/t lung cancer. Pt's Mom has fibromyalgia and bipolar disorder. Dad has CAD, [place], bipolar disorder. Nancy and her significant other of 8 years are excited about the . Her partner is the FOB of both pregnancies. Their daughter is 6 yo. She reports her SO is supportive and she denies any h/o domestic abuse. Nancy takes her PNV in the evening. She does have nausea and vomiting in the morning which she reports is beginning to resolve. We discussed small frequent meals and trying dry crackers at first awakening before getting out of bed to help nausea. She declined Unisom/B6. Pt reports she has not had Covid-19 and has been vaccinated x1, no boosters. Her BMI is 27.1 and prepregnancy weight is 139 lbs. OB PE was scheduled for 12/14/22, labs with early glucose ordered as well as NT US at [facility]. She is aware that she will deliver at [facility]. Pt was given the folder. We discussed danger signs, MD coverage 08/04 and how to reach MD after hours. First trimester education was also reviewed. Pt verbalizes understanding and agrees with plan. No further questions at this time. Assessment & Plan Assessment & Plan (1) Encounter for supervision of normal in third trimester: Code(s): Z34.93 - Encounter for supervision of normal , unspecified, third trimester Category: Medical Coding Level of Care Code [place] Diagnoses Encounter for supervision of normal in third trimester Z34.93
== END 2023-05-03 16:08 | disposition home or self-care (01) ==
LOC: HO.HWS 15:48
PROVIDERS: PCP Internal Medicine; Visit Provider Advanced Practice Midwife
DX: Z34.93 Encounter for supervision of normal pregnancy, unspecified, third trimester (principal)
CPT/HCPCS: 25942

== ENCOUNTER → 2023-05-03 15:48 | Outpatient (BNVA) | payer OTHER, SELFPAY | PROVIDERS: PCP Internal Medicine; Visit Provider Advanced Practice Midwife | DX: Z34.83 Encounter for supervision of other normal pregnancy, third trimester (principal); Z3A.32 32 weeks gestation of pregnancy; Z83.3 Family history of diabetes mellitus | CPT/HCPCS: 99212 ==

== ENCOUNTER 2023-05-16 15:50 | Outpatient (AMB) | payer OTHER, SELFPAY ==
[2023-05-16 15:51] VITALS: BP 112/68; BMI 27.3
--- NOTE | 2023-05-16 15:51 | A.OFFVISPN_ITS ---
Intake Vital Signs 05/16/23 15:51 Height 5 ft 5 in Weight 164 lb BMI 27.3 BP 112/68 Intake Visit Reasons: FOREST Intake Note: The patient agreed to use of a medical assisting program director during this encounter. Scribed for STEPHANIE Whipple by Gwen Kiser medical assisting program director, on 05/16/2023 at 4:08 pm EST. Residential Assistant Required: No Information Interpreted: non-clinical & clinical Accompanied by: Daughter Allergies No Known Allergies [No Known Allergies*] Allergy (Verified 05/16/23 15:56) Patient : Yes [facility] Medical History (Updated 04/19/23 @ 14:01 by Elen Salas) Cleft lip and palate Diarrhea during Encounter for supervision of normal in third trimester Encounter for supervision of other normal in second trimester FH: diabetes mellitus Surgical History (Updated 01/15/23 @ 11:00 by Gwen Kiser) History of repair of cleft lip History of repair of congenital cleft palate Nausea/vomiting in Family History Maternal Grandmother Breast cancer Maternal Grandfather No problems noted. Father Diabetes mellitus CAD (coronary artery disease) Myocardial infarction Mother Bipolar 1 disorder, depressed, full remission Fibromyalgia Social History Household Members: Significant Other, Family and Children Both parents involved: Yes Caregiver staying overnight: No Housing: House Are you a primary home health care physician to a significant other at home: No Do you presently have visiting nurse or other home services: No 75 years or older and lives alone: No Alcohol intake: never Patient Tobacco Use Status: Never used Tobacco Agree to transfusion: Yes service: No Current occupational status: employed 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 Date GA/Weeks Outcome Route Wt Inf Gender Labor Adeline Anesthesia Location Provider Complicate 10/04/16 41 live - full term 6 lb 15 oz [place] 11 hrs [place] [facility] [place] Visit SADI Calculator Estimated Delivery Date Method Current WG Current Estimate 06/26/23 Ultrasound #1 34w 1d Other Estimates 06/19/23 LMP (Certain) 35w 1d 06/27/23 Ultrasound #2 34w 0d Expected Delivery Route/Plan Specific Issues/Plans EDC: 06/26/23 O positive Problem List: 1. Hx cleft lip/palate 2. FH DM-early glucose=81 3. Fibroids 4. SFD-US 03/18/23 41% growth, 34 wks=54% growth, BREECH... reheck position at n/v. NT: nl First trimester screen: negative FAS: EIF noted, plan 3rd trimester follow US. WIC: enrolled Vaccination status: COVID: 1 dose, Covid in 09/2021 Tdap: given 04/19/23 Flu: Social hx: lives w/husb, 6yo daughter Anyi. 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 Labor support: Max plan: natural, used Nitrous oxide w/her first control: OB Visit Log Initial Weight: 139 lb Date -?-?-?-?-?-?-?-?-?-?-?-?- EGA Weight Gest Week Fundal Ht Present FHR move Efface % Edema BP PrePreg We Weight GTT -?-?-?-?-?-?-?-?-?-?-?-?- Glucose LV Protein Blood Type 11/26/22 -?-?-?-?-?-?-?-?-?-?-?--?- 9w 5d 139 lb 2 oz (+2 oz) 144 139 lb 2 oz -?-?-?-?-?-?-?-?-?-?-?-?- 12/14/22 -?-?-?-?-?-?-?-?--?-?-?-?- 12w 2d 139 lb (+0 oz) 12 160 114/60 139 lb -?-?-?-?-?-?-?-?-?-?-?-?- 01/15/23 -?-?-?-?-?-?-?-?-?-?-?-?- 16w 6d 137 lb (-2 lb) 16 150 110/74 137 lb -?-?-?-?-?-?-?-?-?-?-?-?- 02/13/23 -?-?-?-?-?-?-?-?-?-?-?-?- 21w 0d 147 lb (+8 lb) 22 150 100/60 147 lb -?-?-?-?-?-?-?-?-?-?-?-?- 03/13/23 -?-?-?-?-?-?-?-?-?-?-?-?- 25w 0d 149 lb (+10 lb) 22 140 active 112/64 149 lb -?-?-?-?-?-?-?-?-?-?-?-?- 04/05/23 -?-?-?-?-?-?-?-?-?-?-?-?- 28w 2d 154 lb (+15 lb) 26 140 active 108/60 154 lb -?-?--?-?-?-?-?-?-?-?-?-?- 04/19/23 -?-?-?-?-?-?-?-?-?-?-?-?- 30w 2d 153 lb (+14 lb) 27 150 active 108/60 153 lb -?-?-?-?-?-?-?-?-?-?-?-?- 05/03/23 -?-?-?-?-?-?-?-?-?-?-?-?- 32w 2d 161 lb (+22 lb) 30 140 active 100/60 161 lb -?-?-?-?-?-?-?-?-?-?-?-?- 05/16/23 -?-?-?-?-?-?-?-?-?-?-?-?- 34w 1d 164 lb (+25 lb) 28 150 active 112/68 164 lb -?-?-?-?-?-?-?-?-?-?-?-?- Notes Visit Date: 05/16/23 Last Updated by: Gwen Kiser Note author: Yulia Han CNM/Gwen Kiser medical assisting program director 34.1 wk FOREST. Feeling well. Taking PNV. Hydrating well and good appetite G ood FM, no LOF, VB or abd pain. She is here with her daughter Anyi. She voices no concerns or complaints. Last US was last week. Discussed: PTL - LOF, VB, abd pain. GBS in 2 weeks. US results- and positioning; breach position. Follow up scheduled. Advised to eat small frequent meals, hydrate well with water and stay cool. PEC - headaches: not resolved with 2 regular strength Tylenol doses, visual disturbances warnings and when to call for further evaluation. Reviewed when to call for any VB, LOF, contractions, Kick counts reviewed and when to call for any decreased FM. Encouraged patient to sign up for patient portal. Discussed to call the service here for any emergencies/deliveries to be directed to [facility]. All of her questions and concerns were addressed to the best of my ability and shared decision making. She is agreeable to plan of care. RTO in 2 weeks. Visit Date: 05/03/23 Last Updated by: Yulia Han CNM Note author: Yulia Han CNM/Gwen Kiser medical assisting program director 32. 2 wk FOREST. Feeling well. Taking PNV. Hydrating well and good appetite Good FM, no LOF, VB or abd pain. She has a upcoming US 05/07/23. Discussed: PTL - LOF, VB, abd pain. Advised to eat small frequent meals, hydrate well with water and stay cool. PEC - headaches: not resolved with 2 regular strength Tylenol doses, visual disturbances warnings and when to call for further evaluation. Reviewed when to call for any VB, LOF, contractions, Kick counts reviewed and when to call for any decreased FM. Encouraged patient to sign up for patient portal. Discussed to call the service here for any emergencies/deliveries to be directed to [facility]. All of her questions and concerns were addressed to the best of my ability and shared decision making. She is agreeable to plan of care. RTO 2wks. Visit Date: 04/19/23 Last Updated by: Yulia Han CNM Note author: Yulia Han CNM/Elen Salas, medical assisting program director 30.2 wk FOREST. Taking PNV. Good FM. Denies LOF, VB or abd pain. Doing well with no concerns. Good appetite and stays well hydrated. She had Growth US done on 04/07/23, records not available. States she is supposed to have repeat US done due to a bright spot noted. Discussed: PTL-LOF, VB, abd pain, ctx and when to call for further evaluation. PEC - headaches: not resolved with 2 regular strength Tylenol doses, visual disturbances warnings and when to call for further evaluation.? FKC: have something to eat and drink, should have 5 kicks in 1hr or 10 kicks in 2 hrs, if not call immediately for evaluation. Staying well hydrated, drink 8-10 glasses of water per day. Tdap done today. Growth US ordered for small for dates, include eval for EIF 3rd trimester follow up. RTO in 2 weeks. Visit Date: 04/05/23 Last Updated by: Yulia Han CNM Note author: Yulia Han CNM/Gwen Kiser medical assisting program director 28.2 wk FOREST. Feeling well. Taking PNV. Hydrating well and good appetite Good FM, no LOF, VB or abd pain. Reports lumbar pain. Denies lifting anything strenuous. EPDS=7 Discussed: PTL - LOF, VB, abd pain . TDaP handout given. lab work. Recommend pelvic tilt exercises/stretches, heat, massage, consider PT if no improvement. Advised to eat small frequent meals and stay cool and hydrated. PEC - headaches: not resolved with 2 regular strength Tylenol doses, visual disturbances warnings and when to call for further evaluation. Reviewed when to call for any VB, LOF, contractions, Kick counts reviewed and when to call for any decreased FM. Encouraged patient to sign up for patient portal. Discussed to call the service here for any emergencies/deliveries to be directed to [facility]. Visit Date: 03/13/23 Last Updated by: Yulia Han CNM Note author: Yulia Han CNM/Gwen Kiser medical assisting program director 25 wk FOREST. Feeling well. Taking PNV. Hydrating well and good appetite Good FM, no LOF, VB or abd pain. Reports possibly being sick occasional nausea/vomiting with diarrhea. Denies being sensitive to diary or gluten or flu-like symptoms. Discussed: PTL - LOF, VB, abd pain. Schedule growth US-SFD. FAS report from [facility] requesting. OB appointment in 3 weeks and glucose testing same day. BRAT diet for nausea Advised to eat small frequent meals and stay cool and hydrated. Recommend reading and online classes/research for educational purposes. PEC - headaches: not resolved with 2 regular strength Tylenol doses, visual disturbances warnings and when to call for further evaluation. Reviewed when to call for any VB, LOF, contractions, Kick counts reviewed and when to call for any decreased FM. Discussed to call the service here for any emergencies/deliveries to be directed to [facility]. Visit Date: 02/13/23 Last Updated by: Yulia Han CNM Note author: Yulia Han CNM/Gwen Kiser medical assisting program director 21 wk FOREST. Feeling well. Taking PNV. Good FM, no LOF, VB. She recently had a US last wk., report not available. She is experiencing occasional abdominal cramping and lower back pain. Denies [place]. Admits to needing to hydrate better today. Discussed: PTL - LOF, VB, abd pain. Recommend 3 glasses 8 ounces of water to help with abdominal cramping, hot weather this week-stay cool, increase fluids. If cramping gets worse report to [facility]. Reviewed recent lab results. Advised to eat healthy including small frequent meals every 2 hrs and stay hydrated in hot weather. PEC - headaches: not resolved with 2 regular strength. Tylenol doses, visual disturbances warnings and when to call for further evaluation. Reviewed when to call for any VB, LOF, contractions, Kick counts reviewed and when to call for any decreased FM. Discussed to call the service here for any emergencies/deliveries to be directed to [facility]. Unable to void, plan urine in lab today for clean catch. RTO 4 wks, prn. Visit Date: 01/15/23 Last Updated by: Yulia Han CNM Note author: Yulia Han CNM/Gwen Kiser medical assisting program director 16.6wk FOREST. Feeling well. Taking PNV. quickening noted, no LOF, VB or abd pain. She reports over the past weekend she had nausea, vomiting and diarrhea w ith slight abdominal cramping. Appetite slowly improving. No other family members were sick. Staying well hydrated. Call office if not tolerating fluids and not urinating. FAS ordered. PEC - headaches: not resolved with 2 regular strength Tylenol doses, visual disturbances warnings and when to call for further evaluation. Reviewed when to call for any VB, LOF, contractions, Kick counts reviewed and when to call for any decreased FM. Encouraged patient to sign up for patient portal. Discussed to call the service here for any emergencies/deliveries to be directed to [facility]. RTO 4wks. Visit Date: 12/14/22 Last Updated by: Yuliana Lawrence CNM Patient is here at 12 weeks and 2 days for her new OB physical. She did have her full family practice md physical at the time that she had her ParaGard IUD removed on September 27 and her Pap smear was done then but we did not do cultures at that visit because she had no STD concerns. She got the next cycle and we are using the SADI by her for early ultrasound which gave a 1 week different SADI we are using the 06/26/2023 SADI. She had her nuchal translucency ultrasound d one a week ago and that was normal the 1st trimester screening is still pending. All of her lab work was reviewed and is all normal she is not anemic her blood type is O-positive her early glucose was 81. There nausea is finally starting to get better she did throw up a little bit this morning but the previous 3 morning she did not so she is feeling better about that. She did score 7 on the EPDS screening today but she does not think she has any real worries or concerns she thinks her worries are actually the normal ones about what it will be like to have another baby and manage everything.. PE was done there was slight bleeding when the speculum opened and touched the side of her cervix from the surface capillaries. I did show it to her so she would not be worried about where at we had come from. Her cervix did not appear unduly friable just normal for per early . Uterus is approximately 12 weeks size but slightly retroverted. Patient states she did n ot even show with her previous in till 18-20 weeks. Anticipate the same this time. Will be ordering her anatomy scan ultrasound in approximately 7 weeks (6-8) that will be done at [facility]. RTC 4 weeks. Visit Date: 11/26/22 Last Updated by: Ayanna Miranda Nancy is here for nurse intake appt. She is a pleasant, 27 yo in good health, with LMP 09/12/22 SADI by dates 06/21/23. US on 11/01/22 at 6w1d gives SADI of 06/26/23 and GA by US today of 9w5d. FHT found 144. 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 She also has FH of diabetes and a 1 hr glucose has been ordered. Maternal grandmother d/t breast cancer, paternal grandfather d/t lung cancer. Pt's Mom has fibromyalgia and bipolar disorder. Dad has CAD, [place], bipolar disorder. Nancy and her significant other of 8 years are excited about the . Her partner is the FOB of both pregnancies. Their daughter is 6 yo. She reports her SO is supportive and she denies any h/o domestic abuse. Nancy takes her PNV in the evening. She does have nausea and vomiting in the morning which she reports is beginning to resolve. We discussed small frequent meals and trying dry crackers at first awakening before getting out of bed to help nausea. She declined Unisom/B6. Pt reports she has not had Covid-19 and has been vaccinated x1, no boosters. Her BMI is 27.1 and prepregnancy weight is 139 lbs. OB PE was scheduled for 12/14/22, labs with early glucose ordered as well [place] [facility] is aware that she will deliver [place] [facility] Pt was given the folder. We discussed danger signs, MD coverage 08/04 and how to reach MD after hours. First trimester education was also reviewed. Pt verbalizes understanding and agrees with plan. No further questions at this time. Assessment & Plan Assessment & Plan (1) Encounter for supervision of normal in third trimester: Code(s): Z34.93 - Encounter for supervision of normal , unspecified, third trimester Category: Medical Coding Level of Care Code Wen Diagnoses Encounter for supervision of normal in third trimester Z34.93
== END 2023-05-16 16:17 | disposition home or self-care (01) ==
PROVIDERS: PCP Internal Medicine; Visit Provider Advanced Practice Midwife
DX: Z34.93 Encounter for supervision of normal pregnancy, unspecified, third trimester (principal)
CPT/HCPCS: 25942

== ENCOUNTER → 2023-05-16 15:50 | Outpatient (BNVA) | payer OTHER, SELFPAY | PROVIDERS: PCP Internal Medicine; Visit Provider Advanced Practice Midwife | DX: Z34.93 Encounter for supervision of normal pregnancy, unspecified, third trimester (principal) | CPT/HCPCS: 99212 ==

== ENCOUNTER 2023-05-30 15:14 | Outpatient (REF) | payer OTHER, SELFPAY | END 2023-05-30 15:15 | disposition home or self-care (01) | LOC: HO.LNP 15:14 | PROVIDERS: PCP Internal Medicine; Visit Provider Advanced Practice Midwife | DX: Z34.93 Encounter for supervision of normal pregnancy, unspecified, third trimester (principal); Z3A.36 36 weeks gestation of pregnancy | CPT/HCPCS: 81003; 99212 ==

== ENCOUNTER 2023-05-30 15:14 | Outpatient (AMB) | payer OTHER, SELFPAY ==
--- NOTE | 2023-05-30 15:15 | MHC.OFFVISPN ---
Intake Vital Signs 05/30/23 15:16 Height 5 ft 5 in Weight 171 lb BMI 28.5 BP 100/64 Intake Visit Reasons: FOREST/60 Intake Note: The patient agreed to use of a medical surgery nurse during this encounter. Scribed for STEPHANIE Whipple by Gwen Kiser medical surgery nurse, on 05/30/2023 at 3:30 pm EST. Senior Technical Architect: Senior Technical Architect Present (Gi) Allergies No Known Allergies [No Known Allergies*] Allergy (Verified 05/30/23 15:16) Patient : Yes PFSH Medical History (Updated 04/19/23 @ 14:01 by Elen Salas) Encounter for supervision of normal in third trimester Encounter for supervision of other normal in second trimester Diarrhea during FH: diabetes mellitus Cleft lip and palate Surgical History (Updated 01/15/23 @ 11:00 by Gwen Kiser) Nausea/vomiting in History of repair of congenital cleft palate History of repair of cleft lip Family History Maternal Grandmother Breast cancer Maternal Grandfather No problems noted. Father Diabetes mellitus CAD (coronary artery disease) Myocardial infarction Mother Bipolar 1 disorder, depressed, full remission Fibromyalgia Social History Household Members: Significant Other, Family and Children Both parents involved: Yes Caregiver staying overnight: No Housing: House Are you a primary child care nurse to a significant other at home: No Do you presently have visiting nurse or other home services: No 75 years or older and lives alone: No Alcohol intake: never Patient Tobacco Use Status: Never used Tobacco Agree to transfusion: Yes service: No Current occupational status: employed 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 Date GA/Weeks Outcome Route Wt Inf Gender Labor Adeline Anesthesia Location Provider Complicate 10/04/16 41 live - full term 6 lb 15 oz Female 11 hrs other [facility] none Visit SADI Calculator Estimated Delivery Date Method Current WG Current Estimate 06/26/23 Ultrasound #1 36w 1d Other Estimates 06/19/23 LMP (Certain) 37w 1d 06/27/23 Ultrasound #2 36w 0d Expected Delivery Route/Plan Specific Issues/Plans EDC: 06/26/23 O positive Problem List: 1. Hx cleft lip/palate 2. FH DM-early glucose=81 3. Fibroids 4. SFD-US 03/18/23 41% growth, 34 wks=54% growth, BREECH... reheck position at n/v. NT: nl First trimester screen: negative FAS: EIF noted, plan 3rd trimester follow US. WIC: enrolled Vaccination status: COVID: 1 dose, Covid in 09/2021 Tdap: given 04/19/23 Flu: Social hx: lives w/husb, 6yo daughter Anyi. 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 Labor support: Max plan: natural, used Nitrous oxide w/her first control: OB Visit Log Initial Weight: 139 lb Date <del>?</del> EGA Weight Gest Week Fundal Ht Present FHR move Efface % Edema BP PrePreg We Weight GTT <del>?</del> Glucose LV Protein Blood Type 11/26/22 <del>?</del> 9w 5d 139 lb 2 oz (+2 oz) 144 139 lb 2 oz <del>?</del> 12/14/22 <del>?</del> 12w 2d 139 lb (+0 oz) 12 160 114/60 139 lb <del>?</del> 01/15/23 <del>?</del> 16w 6d 137 lb (-2 lb) 16 150 110/74 137 lb <del>?</del> 02/13/23 <del>?</del> 21w 0d 147 lb (+8 lb) 22 150 100/60 147 lb <del>?</del> 03/13/23 <del>?</del> 25w 0d 149 lb (+10 lb) 22 140 active 112/64 149 lb <del>?</del> 04/05/23 <del>?</del> 28w 2d 154 lb (+15 lb) 26 140 active 108/60 154 lb <del>?</del> 04/19/23 <del>?</del> 30w 2d 153 lb (+14 lb) 27 150 active 108/60 153 lb <del>?</del> 05/03/23 <del>?</del> 32w 2d 161 lb (+22 lb) 30 140 active 100/60 161 lb <del>?</del> 05/16/23 <del>?</del> 34w 1d 164 lb (+25 lb) 28 150 active 112/68 164 lb <del>?</del> 05/30/23 <del>?</del> 36w 1d 171 lb (+32 lb) 36 vtx 150 active 100/64 171 lb <del>?</del> Notes Visit Date: 05/30/23 Last Updated by: Yulia Han CNM Note author: Yulia Han CNM/[facility] nurse 36.1 wk FOREST. Feeling well. Taking PNV. Hydrating well and good appetite Good FM, no LOF, VB or abd pain. She has no questions or concerns. Denies vaginal itching or irritation. Pelvic exam offered and to confirm position; she accepts. 1 cm dilated. Discussed: PTL - LOF, VB, abd pain. GBS, GC/CT panel done today. Await results and treat accordingly. PEC - headaches: not resolved with 2 regular strength Tylenol doses, visual disturbances warnings and when to call for further evaluation. Reviewed when to call for any VB, LOF, contractions, Kick counts reviewed and when to call for any decreased FM. Encouraged patient to sign up for patient portal. Discussed to call the service here for any emergencies/deliveries to be directed to [facility]. All of her questions and concerns were addressed to the best of my ability and shared decision making. She is agreeable to plan of care. RTO 1wk Visit Date: 05/16/23 Last Updated by: Gwen Kiser Note author: Yulia Han CNM/Gwen Kiser medical surgery nurse 34.1 wk FOREST. Feeling well. Taking PNV. Hydrating well and good appetite Good FM, no LOF, VB or abd pain. She is here with her daughter Anyi. She voices no concerns or complaints. Last US was last week. Discussed: PTL - LOF, VB, abd pain. GBS in 2 weeks. US results- and positioning; breach position. Follow up scheduled. Advised to eat small frequent meals, hydrate well with water and stay cool. PEC - headaches: not resolved with 2 regular strength Tylenol doses, visual disturbances warnings and when to call for further evaluation. Reviewed when to call for any VB, LOF, contractions, Kick counts reviewed and when to call for any decreased FM. Encouraged patient to sign up for patient portal. Discussed to call the service here for any emergencies/deliveries to be directed to [facility]. All of her questions and concerns were addressed to the best of my ability and shared decision making. She is agreeable to plan of care. RTO in 2 weeks. Visit Date: 05/03/23 Last Updated by: Yulia Han CNM Note author: Yulia Han CNM/Gwen Kiser medical surgery nurse 32. 2 wk FOREST. Feeling well. Taking PNV. Hydrating well and good appetite Good FM, no LOF, VB or abd pain. She has a upcoming US 05/07/23. Discussed: PTL - LOF, VB, abd pain. Advised to eat small frequent meals, hydrate well with water and stay cool. PEC - headaches: not resolved with 2 regular strength Tylenol doses, visual disturbances warnings and when to call for further evaluation. Reviewed when to call for any VB, LOF, contractions, Kick counts reviewed and when to call for any decreased FM. Encouraged patient to sign up for patient portal. Discussed to call the service here for any emergencies/deliveries to be directed to [facility]. All of her questions and concerns were addressed to the best of my ability and shared decision making. She is agreeable to plan of care. RTO 2wks. Visit Date: 04/19/23 Last Updated by: Yulia Han CNM Note author: Yulia Han CNM/Elen Salas, medical surgery nurse 30.2 wk FOREST. Taking PNV. Good FM. Denies LOF, VB or abd pain. Doing well with no concerns. Good appetite and stays well hydrated. She had Growth US done on 04/07/23, records not available. States she is supposed to have repeat US done due to a bright spot noted. Discussed: PTL-LOF, VB, abd pain, ctx and when to call for further evaluation. PEC - headaches: not resolved with 2 regular strength Tylenol doses, visual disturbances warnings and when to call for further evaluation.? FKC: have something to eat and drink, should have 5 kicks in 1hr or 10 kicks in 2 hrs, if not call immediately for evaluation. Staying well hydrated, drink 8-10 glasses of water per day. Tdap done today. Growth US ordered for small for dates, include eval for EIF 3rd trimester follow up. RTO in 2 weeks. Visit Date: 04/05/23 Last Updated by: Yulia Han CNM Note author: Yulia Han CNM/Gwen Kiser medical surgery nurse 28.2 wk FOREST. Feeling well. Taking PNV. Hydrating well and good appetite Good FM, no LOF, VB or abd pain. Reports lumbar pain. Denies lifting anything strenuous. EPDS=7 Discussed: PTL - LOF, VB, abd pain . TDaP handout given. lab work. Recommend pelvic tilt exercises/stretches, heat, massage, consider PT if no improvement. Advised to eat small frequent meals and stay cool and hydrated. PEC - headaches: not resolved with 2 regular strength Tylenol doses, visual disturbances warnings and when to call for further evaluation. Reviewed when to call for any VB, LOF, contractions, Kick counts reviewed and when to call for any decreased FM. Encouraged patient to sign up for patient portal. Discussed to call the service here for any emergencies/deliveries to be directed to [facility]. Visit Date: 03/13/23 Last Updated by: Yulia Han CNM Note author: Yulia Han CNM/Gwen Kiser medical surgery nurse 25 wk FOREST. Feeling well. Taking PNV. Hydrating well and good appetite Good FM, no LOF, VB or abd pain. Reports possibly being sick occasional nausea/vomiting with diarrhea. Denies being sensitive to diary or gluten or flu-like symptoms. Discussed: PTL - LOF, VB, abd pain. Schedule growth US-SFD. FAS report from [facility] requesting. OB appointment in 3 weeks and glucose testing same day. BRAT diet for nausea Advised to eat small frequent meals and stay cool and hydrated. Recommend reading and online classes/research for educational purposes. PEC - headaches: not resolved with 2 regular strength Tylenol doses, visual disturbances warnings and when to call for further evaluation. Reviewed when to call for any VB, LOF, contractions, Kick counts reviewed and when to call for any decreased FM. Discussed to call the service here for any emergencies/deliveries to be directed to [facility]. Visit Date: 02/13/23 Last Updated by: Yulia Han CNM Note author: Yulia Han CNM/Gwen Kiser medical surgery nurse 21 wk FOREST. Feeling well. Taking PNV. Good FM, no LOF, VB. She recently had a US last wk., report not available. She is experiencing occasional abdominal cramping and lower back pain. Denies [place]. Admits to needing to hydrate better today. Discussed: PTL - LOF, VB, abd pain. Recommend 3 glasses 8 ounces of water to help with abdominal cramping, hot weather this week-stay cool, increase fluids. If cramping gets worse report to [facility]. Reviewed recent lab results. Advised to eat healthy including small frequent meals every 2 hrs and stay hydrated in hot weather. PEC - headaches: not resolved with 2 regular strength. Tylenol doses, visual disturbances warnings and when to call for further evaluation. Reviewed when to call for any VB, LOF, contractions, Kick counts reviewed and when to call for any decreased FM. Discussed to call the service here for any emergencies/deliveries to be directed to [facility]. Unable to void, plan urine in lab today for clean catch. RTO 4 wks, prn. Visit Date: 01/15/23 Last Updated by: Yulia Han CNM Note author: Yulia Han CNM/Gwen Kiser medical surgery nurse 16.6wk FOREST. Feeling well. Taking PNV. quickening noted, no LOF, VB or abd pain. She reports over the past weekend she had nausea, vomiting and diarrhea with slight abdominal cramping. Appetite slowly improving. No other family members were sick. Staying well hydrated. Call office if not tolerating fluids and not urinating. FAS ordered. PEC - headaches: not resolved with 2 regular strength Tylenol doses, visual disturbances warnings and when to call for further evaluation. Reviewed when to call for any VB, LOF, contractions, Kick counts reviewed and when to call for any decreased FM. Encouraged patient to sign up for patient portal. Discussed to call the service here for any emergencies/deliveries to be directed to [facility]. RTO 4wks. Visit Date: 12/14/22 Last Updated by: Yuliana Lawrence CNM Patient is here at 12 weeks and 2 days for her new OB physical. 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 She got the next cycle and we are using the SADI by her for early ultrasound which gave a 1 week different SADI we are using the 06/26/2023 SADI. She had her nuchal translucency ultrasound done a week ago and that was normal the 1st trimester screening is still pending. All of her lab work was reviewed and is all normal she is not anemic her blood type is O-positive her early glucose was 81. There nausea is finally starting to get better she did throw up a little bit this morning but the previous 3 morning she did not so she is feeling better about that. She did score 7 on the EPDS screening today but she does not think she has any real worries or concerns she thinks her worries are actually the normal ones about what it will be like to have another baby and manage everything.. PE was done there was slight bleeding when the speculum opened and touched the side of her cervix from the surface capillaries. I did show it to her so she would not be worried about where at we had come from. Her cervix did not appear unduly friable just normal for per early . Uterus is approximately 12 weeks size but slightly retroverted. Patient states she did not even show with her previous in till 18-20 weeks. Anticipate the same this time. Will be ordering her anatomy scan ultrasound in approximately 7 weeks (6-8) that will be done at [facility]. RTC 4 weeks. Visit Date: 11/26/22 Last Updated by: Ayanna Miranda Nancy is here for nurse intake appt. She is a pleasant, 27 yo in good health, with LMP 09/12/22 SADI by dates 06/21/23. US on 11/01/22 at 6w1d gives SADI of 06/26/23 and GA by US today of 9w5d. FHT found 144. 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 She also has FH of diabetes and a 1 hr glucose has been ordered. Maternal grandmother d/t breast cancer, paternal grandfather d/t lung cancer. Pt's Mom has fibromyalgia and bipolar disorder. Dad has CAD, VA, bipolar disorder. Nancy and her significant other of 8 years are excited about the . Her partner is the FOB of both pregnancies. Their daughter is 6 yo. She reports her SO is supportive and she denies any h/o domestic abuse. Nancy takes her PNV in the evening. She does have nausea and vomiting in the morning which she reports is beginning to resolve. We discussed small frequent meals and trying dry crackers at first awakening before getting out of bed to help nausea. She declined Unisom/B6. Pt reports she has not had Covid-19 and has been vaccinated x1, no boosters. Her BMI is 27.1 and prepregnancy weight is 139 lbs. OB PE was scheduled for 12/14/22, labs with early glucose ordered as well as NT US at [facility]. She is aware that she will deliver at [facility]. Pt was given the folder. We discussed danger signs, MD coverage 08/04 and how to reach MD after hours. First trimester education was also reviewed. Pt verbalizes understanding and agrees with plan. No further questions at this time. Results AMB Urinalysis, Automated UA Leukoctes 2 Tonio/uL Last Edit by Michelle Le [facility] on 05/30/23 15:27 UA Nitrite Negative Last Edit by Michelle Le [facility] on 05/30/23 15:27 UA Urobilinogen 0 mg/dL Last Edit by Michelle Le [facility] on 05/30/23 15:27 UA Protein 0 mg/dL Last Edit by Michelle Le [facility] on 05/30/23 15:27 UA pH 6.0 Last Edit by Michelle Le [facility] on 05/30/23 15:27 UA Blood 0 Donnie/uL Last Edit by Michelle Le [facility] on 05/30/23 15:27 UA Specific [place] 1.025 Last Edit by Michelle Le [facility] on 05/30/23 15:27 UA Ketone Negative Last Edit by Michelle Le [facility] on 05/30/23 15:27 UA Bilirubin 0 mg/dL Last Edit by Michelle Le [facility] on 05/30/23 15:27 UA Glucose 0 mg/dL Last Edit by Michelle Le [facility] on 05/30/23 15:27 Exam Const Constitutional General: cooperative, healthy appearing, no acute distress, well developed and alert Orientation/consciousness: oriented to person, oriented to place, oriented to time and patient oriented x3 General Exam: Yes bladder normal to palpation External Female Exam: normal external appearance and normal appearance of the urethra Urethra: normal appearance of the urethra Speculum exam - vagina: normal appearance of the vagina and normal discharge Bimanual exam- vagina & uterus: normal bimanual exam, uterine size normal, bladder normal to palpation and normal palpation Bimanual Exam- Adnexa, other: normal adnexae and no masses Neuro General: Yes oriented to person, Yes oriented to place and Yes oriented to time Results Reviewed Results Reviewed: Laboratory Last Values Urine pH (Auto) 6.0 05/30/23 15:26 Specific [place] (Auto) 1.025 05/30/23 15:26 Urine Protein (Auto) 0 mg/dL 05/30/23 15:26 Glucose (UA)(Auto) 0 mg/dL 05/30/23 15:26 Urine Ketones (Auto) Negative 05/30/23 15:26 Urine Blood (Auto) 0 Donnie/uL 05/30/23 15:26 Urine Nitrite (Auto) Negative 05/30/23 15:26 Urine Bilirubin (Auto) 0 mg/dL 05/30/23 15:26 Urine Urobilinogen (Auto) 0 mg/dL 05/30/23 15:26 Leukocyte Esterase (Auto) 2 Tonio/uL 05/30/23 15:26 Assessment & Plan Assessment & Plan (1) Encounter for supervision of normal in third trimester: Code(s): Z34.93 - Encounter for supervision of normal , unspecified, third trimester Category: Medical Orders: Orders AMB Urinalysis Automated Today Z34 - Encounter for supervision of normal , unspecified, third trimester CT NG by PCR Today Z34 - Encounter for supervision of normal , unspecified, third trimester Group B Strep PCR Today 34 - Encounter for supervision of normal , unspecified, third trimester Coding Level of Care Code [place] Diagnoses Encounter for supervision of normal in third trimester Z34
[2023-05-30 15:16] VITALS: BP 100/64; BMI 28.5
== END 2023-05-30 15:40 | disposition home or self-care (01) ==
PROVIDERS: PCP Internal Medicine; Visit Provider Advanced Practice Midwife
DX: Z34.93 Encounter for supervision of normal pregnancy, unspecified, third trimester (principal)
CPT/HCPCS: 25942

== ENCOUNTER 2023-05-30 15:37 | Outpatient (REF) | payer OTHER, SELFPAY ==
[2023-05-31 09:42] LABS: CT PCR NOT DETECTED (Not Detect.); NG PCR NOT DETECTED (Not Detect.)
[2023-06-01 09:07] LABS: Allergic to Penicillin? No
== END 2023-05-30 15:38 | disposition home or self-care (01) ==
LOC: HO.LAB 15:37
PROVIDERS: Visit Provider Advanced Practice Midwife
DX: Z34.93 Encounter for supervision of normal pregnancy, unspecified, third trimester (principal)
CPT/HCPCS: 0353U; 87150

== ENCOUNTER 2023-06-06 13:47 | Outpatient (AMB) | payer OTHER, SELFPAY ==
--- NOTE | 2023-06-06 13:49 | A.OFFVISPN_ITS ---
Intake Vital Signs 06/06/23 13:50 Height 5 ft 5 in Weight 170 lb BMI 28.3 BP 100/62 Intake Visit Reasons: FOREST Intake Note: The patient agreed to use of a medical lab technician during this encounter. Scribed for STEPHANIE Whipple by Gwen Kiser medical lab technician, on 06/06/2023 at 2:00 pm EST. Allergies No Known Allergies [No Known Allergies*] Allergy (Verified 06/06/23 13:50) Patient : Yes [facility] Medical History (Updated 04/19/23 @ 14:01 by Elen Salas) Encounter for supervision of normal in third trimester Encounter for supervision of other normal in second trimester Diarrhea during FH: diabetes mellitus Cleft lip and palate Surgical History (Updated 01/15/23 @ 11:00 by Gwen Kiser) Nausea/vomiting in History of repair of congenital cleft palate History of repair of cleft lip Family History Maternal Grandmother Breast cancer Maternal Grandfather No problems noted. Father Diabetes mellitus CAD (coronary artery disease) Myocardial infarction Mother Bipolar 1 disorder, depressed, full remission Fibromyalgia Social History Household Members: Significant Other, Family and Children Both parents involved: Yes Caregiver staying overnight: No Housing: House Are you a primary career consultant to a significant other at home: No Do you presently have visiting nurse or other home services: No 75 years or older and lives alone: No Alcohol intake: never Patient Tobacco Use Status: Never used Tobacco Agree to transfusion: Yes service: No Current occupational status: employed 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 Date GA/Weeks Outcome Route Wt Inf Gender Labor Adeline Anesthesia Location Provider Complicate 10/04/16 41 live - full term 6 lb 15 oz Female 11 hrs ot her [facility] JUSTINE Ruggiero none Visit SADI Calculator Estimated Delivery Date Method Current WG Current Estimate 06/26/23 Ultrasound #1 37w 1d Other Estimates 06/19/23 LMP (Certain) 38w 1d 06/27/23 Ultrasound #2 37w 0d Expected Delivery Route/Plan Specific Issues/Plans EDC: 06/26/23 O positive Problem List: 1. Hx cleft lip/palate 2. FH DM-early glucose=81 3. Fibroids 4. SFD-US 03/18/23 41% growth, 34 wks=54% growth, BREECH... reheck position at n/v. NT: nl First trimester screen: negative FAS: EIF noted, plan 3rd trimester follow US. WIC: enrolled Vaccination status: COVID: 1 dose, Covid in 09/2021 Tdap: given 04/19/23 Flu: Social hx: lives w/husb, 6yo daughter Anyi. 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, plans to breast feed Labor support: Max plan: natural, used Nitrous oxide w/her first control: ParaGard OB Visit Log Initial Weight: 139 lb Date -?-?-?-?-?-?-?-?-?-?-?-?- EGA Weight Gest Week Fundal Ht Present FHR move Efface % Edema BP PrePreg We Weight GTT -?-?-?-?-?-?-?-?-?-?-?-?- Glucose LV Protein Blood Type 11/26/22 -?-?-?-?-?-?-?-?-?-?-?-?- 9w 5d 139 lb 2 oz (+2 oz) 144 139 lb 2 oz -?-?-?-?-?-?-?-?-?-?-?-?- 12/14/22 -?-?-?-?-?-?-?-?-?-?-?-?- 12w 2d 139 lb (+0 oz) 12 160 114/60 139 lb -?-?-?-?-?-?-?-?-?-?-?-?- 01/15/23 -?-?-?-?-?-?-?-?-?-?-?-?- 16w 6d 137 lb (-2 lb) 16 150 110/74 137 lb -?-?-?-?--?-?-?-?-?-?-?-?- 02/13/23 -?-?-?-?-?-?-?-?-?-?-?-?- 21w 0d 147 lb (+8 lb) 22 150 100/60 147 lb -?-?-?-?-?-?-?-?-?-?-?-?- 03/13/23 -?-?-?-?-?-?-?-?-?-?-?-?- 25w 0d 149 lb (+10 lb) 22 140 active 112/64 149 lb -?-?-?-?-?-?-?-?-?-?-?-?- 04/05/23 -?-?-?-?-?-?-?-?-?-?-?-?- 28w 2d 154 lb (+15 lb) 26 140 active 108/60 154 lb -?-?-?-?-?-?-?-?-?-?-?-?- 04/19/23 -?-?-?-?-?-?-?-?-?-?-?-?- 30w 2d 153 lb (+14 lb) 27 150 active 108/60 153 lb -?-?-?-?-?-?-?-?-?-?-?-?- 05/03/23 -?-?-?-?-?-?-?-?-?-?-?-?- 32w 2d 161 lb (+22 lb) 30 140 active 100/60 161 lb -?-?-?-?-?-?-?-?-?-?-?-?- 05/16/23 -?-?-?-?-?-?-?-?-?-?-?-?- 34w 1d 164 lb (+25 lb) 28 150 active 112/68 164 lb -?-?-?-?-?-?-?-?-?-?-?-?- 05/30/23 -?-?-?-?-?-?-?-?-?-?-?-?- 36w 1d 171 lb (+32 lb) 36 vtx 150 active 100/64 171 lb -?-?-?-?-?-?-?-?-?-?-?-?- 06/06/23 -?-?-?-?-?-?-?-?-?-?-?-?- 37w 1d 170 lb (+31 lb) 34 vtx 140 active 100/62 170 lb -?-?-?-?-?-?-?-?-?-?-?-?- Notes Visit Date: 06/06/23 Last Updated by: Yulia Han CNM Note author: Yulia Han CNM/Gwen Kiser medical lab technician 37.1 wk FOREST. Feeling well. Taking PNV. Hydrating well and good appetite Good FM, no LOF, VB or abd pain. She has no questions or concerns today. Prepped at home for baby. 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 Reports having ParaGard after last delivery, would like to have this again. She is not interested in hormonal contraceptives. . Is planning to breastfeed. Discussed: PTL - LOF, VB, abd pain. GBS - negative. PEC - headaches: not resolved with 2 regular strength Tylenol doses, visual disturbances warnings and when to call for further evaluation. Reviewed when to call for any VB, LOF, contractions, Kick counts reviewed and when to call for any decreased FM. Encouraged patient to sign up for patient portal. Discussed to call the service here for any emergencies/deliveries to be directed to [facility]. Prior auth for ParaGard signed. RTO 1wk/prn Visit Date: 05/30/23 Last Updated by: Yulia Han CNM Note author: Yulia Han CNM/Gwen Kiser medical lab technician 36.1 wk FOREST. Feeling well. Taking PNV. Hydrating well and good appetite Good FM, no LOF, VB or abd pain. She has no questions or concerns. Denies vaginal itching or irritation. Pelvic exam offered and to confirm position; she accepts. 1 cm dilated. Discussed: PTL - LOF, VB, abd pain. GBS, GC/CT panel done today. Await results and treat accordingly. PEC - headaches: not resolved with 2 regular strength Tylenol doses, visual disturbances warnings and when to call for further evaluation. Reviewed when to call for any VB, LOF, contractions, Kick counts reviewed and when to call for any decreased FM. Encouraged patient to sign up for patient portal. Discussed to call the service here for any emergencies/deliveries to be directed to [facility]. All of her questions and concerns were addressed to the best of my ability and shared decision making. She is agreeable to plan of care. RTO 1wk Visit Date: 05/16/23 Last Updated by: Gwen Kiser Note author: Yulia Han CNM/Gwen Kiser medical lab technician 34.1 wk FOREST. Feeling well. Taking PNV. Hydrating well and good appetite G ood FM, no LOF, VB or abd pain. She is here with her daughter Anyi. She voices no concerns or complaints. Last US was last week. Discussed: PTL - LOF, VB, abd pain. GBS in 2 weeks. US results- and positioning; breach position. Follow up scheduled. Advised to eat small frequent meals, hydrate well with water and stay cool. PEC - headaches: not resolved with 2 regular strength Tylenol doses, visual disturbances warnings and when to call for further evaluation. Reviewed when to call for any VB, LOF, contractions, Kick counts reviewed and when to call for any decreased FM. Encouraged patient to sign up for patient portal. Discussed to call the service here for any emergencies/deliveries to be directed to [facility]. All of her questions and concerns were addressed to the best of my ability and shared decision making. She is agreeable to plan of care. RTO in 2 weeks. Visit Date: 05/03/23 Last Updated by: Yulia Han CNM Note author: Yulia Han CNM/Gwen Kiser medical lab technician 32. 2 wk FOREST. Feeling well. Taking PNV. Hydrating well and good appetite Good FM, no LOF, VB or abd pain. She has a upcoming US 05/07/23. Discussed: PTL - LOF, VB, abd pain. Advised to eat small frequent meals, hydrate well with water and stay cool. PEC - headaches: not resolved with 2 regular strength Tylenol doses, visual disturbances warnings and when to call for further evaluation. Reviewed when to call for any VB, LOF, contractions, Kick counts reviewed and when to call for any decreased FM. Encouraged patient to sign up for patient portal. Discussed to call the service here for any emergencies/deliveries to be directed to [facility]. All of her questions and concerns were addressed to the best of my ability and shared decision making. She is agreeable to plan of care. RTO 2wks. Visit Date: 04/19/23 Last Updated by: Yulia Han CNM Note author: Yulia Han CNM/Elen Salas, medical lab technician 30.2 wk FOREST. Taking PNV. Good FM. Denies LOF, VB or abd pain. Doing well with no concerns. Good appetite and stays well hydrated. She had Growth US done on 04/07/23, records not available. States she is supposed to have repeat US done due to a bright spot noted. Discussed: PTL-LOF, VB, abd pain, ctx and when to call for further evaluation. PEC - headaches: not resolved with 2 regular strength Tylenol doses, visual disturbances warnings and when to call for further evaluation.? FKC: have something to eat and drink, should have 5 kicks in 1hr or 10 kicks in 2 hrs, if not call immediately for evaluation. Staying well hydrated, drink 8-10 glasses of water per day. Tdap done today. Growth US ordered for small for dates, include eval for EIF 3rd trimester follow up. RTO in 2 weeks. Visit Date: 04/05/23 Last Updated by: Yulia Han CNM Note author: Yulia Han CNM/Gwen Kiser medical lab technician 28.2 wk FOREST. Feeling well. Taking PNV. Hydrating well and good appetite Good FM, no LOF, VB or abd pain. Reports lumbar pain. Denies lifting anything strenuous. EPDS=7 Discussed: PTL - LOF, VB, abd pain . TDaP handout given. lab work. Recommend pelvic tilt exercises/stretches, heat, massage, consider PT if no improvement. Advised to eat small frequent meals and stay cool and hydrated. PEC - headaches: not resolved with 2 regular strength Tylenol doses, visual disturbances warnings and when to call for further evaluation. Reviewed when to call for any VB, LOF, contractions, Kick counts reviewed and when to call for any decreased FM. Encouraged patient to sign up for patient portal. Discussed to call the service here for any emergencies/deliveries to be directed to [facility]. Visit Date: 03/13/23 Last Updated by: Yulia Han CNM Note author: Yulia Han CNM/Gwen Kiser medical lab technician 25 wk FOREST. Feeling well. Taking PNV. Hydrating well and good appetite Good FM, no LOF, VB or abd pain. Reports possibly being sick occasional nausea/vomiting with diarrhea. Denies being sensitive to diary or gluten or flu-like symptoms. Discussed: PTL - LOF, VB, abd pain. Schedule growth US-SFD. FAS report from [facility] requesting. OB appointment in 3 weeks and glucose testing same day. BRAT diet for nausea Advised to eat small frequent meals and stay cool and hydrated. Recommend reading and online classes/research for educational purposes. PEC - headaches: not resolved with 2 regular strength Tylenol doses, visual disturbances warnings and when to call for further evaluation. Reviewed when to call for any VB, LOF, contractions, Kick counts reviewed and when to call for any decreased FM. Discussed to call the service here for any emergencies/deliveries to be directed to [facility]. Visit Date: 02/13/23 Last Updated by: Yulia Han CNM Note author: Yulia Han CNM/Gwen Kiser medical lab technician 21 wk FOREST. Feeling well. Taking PNV. Good FM, no LOF, VB. She recently had a US last wk., report not available. She is experiencing occasional abdominal cramping and lower back pain. Denies Yogesh Betancourt. Admits to needing to hydrate better today. Discussed: PTL - LOF, VB, abd pain. Recommend 3 glasses 8 ounces of water to help with abdominal cramping, hot weather this week-stay cool, increase fluids. If cramping gets worse report to [facility]. Reviewed recent lab results. Advised to eat healthy including small frequent meals every 2 hrs and stay hydrated in hot weather. PEC - headaches: not resolved with 2 regular strength. Tylenol doses, visual disturbances warnings and when to call for further evaluation. Reviewed when to call for any VB, LOF, contractions, Kick counts reviewed and when to call for any decreased FM. Discussed to call the service here for any emergencies/deliveries to be directed to [facility]. Unable to void, plan urine in lab today for clean catch. RTO 4 wks, prn. Visit Date: 01/15/23 Last Updated by: Yulia Han CNM Note author: Yulia Han CNM/Gwen Kiser medical lab technician 16.6wk FOREST. Feeling well. Taking PNV. quickening noted, no LOF, VB or abd pain. She reports over the past weekend she had nausea, vomiting and diarrhea w ith slight abdominal cramping. Appetite slowly improving. No other family members were sick. Staying well hydrated. Call office if not tolerating fluids and not urinating. FAS ordered. PEC - headaches: not resolved with 2 regular strength Tylenol doses, visual disturbances warnings and when to call for further evaluation. Reviewed when to call for any VB, LOF, contractions, Kick counts reviewed and when to call for any decreased FM. Encouraged patient to sign up for patient portal. Discussed to call the service here for any emergencies/deliveries to be directed to [facility]. RTO 4wks. Visit Date: 12/14/22 Last Updated by: Yuliana Lawrence CNM Patient is here at 12 weeks and 2 days for her new OB physical. She did have her full electroencephalograph technologist physical at the time that she had her ParaGard IUD removed on September 27 and her Pap smear was done then but we did not do cultures at that visit because she had no STD concerns. She got the next cycle and we are using the SADI by her for early ultrasound which gave a 1 week different SADI we are using the 06/26/2023 SADI. She had her nuchal translucency ultrasound d one a week ago and that was normal the 1st trimester screening is still pending. All of her lab work was reviewed and is all normal she is not anemic her blood type is O-positive her early glucose was 81. There nausea is finally starting to get better she did throw up a little bit this morning but the previous 3 morning she did not so she is feeling better about that. She did score 7 on the EPDS screening today but she does not think she has any real worries or concerns she thinks her worries are actually the normal ones about what it will be like to have another baby and manage everything.. PE was done there was slight bleeding when the speculum opened and touched the side of her cervix from the surface capillaries. I did show it to her so she would not be worried about where at we had come from. Her cervix did not appear unduly friable just normal for per early . Uterus is approximately 12 weeks size but slightly retroverted. Patient states she did n ot even show with her previous in till 18-20 weeks. Anticipate the same this time. Will be ordering her anatomy scan ultrasound in approximately 7 weeks (6-8) that will be done at [facility]. RTC 4 weeks. Visit Date: 11/26/22 Last Updated by: Ayanna Miranda Nancy is here for nurse intake appt. She is a pleasant, 27 yo in good health, with LMP 09/12/22 SADI by dates 06/21/23. US on 11/01/22 at 6w1d gives SADI of 06/26/23 and GA by US today of 9w5d. FHT found 144. 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 She also has FH of diabetes and a 1 hr glucose has been ordered. Maternal grandmother d/t breast cancer, paternal grandfather d/t lung cancer. Pt's Mom has fibromyalgia and bipolar disorder. Dad has CAD, [place], bipolar disorder. Nancy and her significant other of 8 years are excited about the . Her partner is the FOB of both pregnancies. Their daughter is 6 yo. She reports her SO is supportive and she denies any h/o domestic abuse. Nancy takes her PNV in the evening. She does have nausea and vomiting in the morning which she reports is beginning to resolve. We discussed small frequent meals and trying dry crackers at first awakening before getting out of bed to help nausea. She declined Unisom/B6. Pt reports she has not had Covid-19 and has been vaccinated x1, no boosters. Her BMI is 27.1 and prepregnancy weight is 139 lbs. OB PE was scheduled for 12/14/22, labs with early glucose ordered as well as NT US at [facility]. She is aware that she will deliver at [facility]. Pt was given the folder. We discussed danger signs, MD coverage 08/04 and how to reach MD after hours. First trimester education was also reviewed. Pt verbalizes understanding and agrees with plan. No further questions at this time. Results AMB Urinalysis, Automated 2 UA Leukoctes 3 Tonio/uL Last Edit by Michelle Le [facility] on 06/06/23 13:57 UA Nitrite Negative Last Edit by Michelle Le [facility] on 06/06/23 13:57 UA Urobilinogen 0 mg/dL Last Edit by Michelle Le [facility] on 06/06/23 13:5 7 UA Protein 0.5 mg/dL Last Edit by Michelle Le [facility] on 06/06/23 13:57 UA pH 6.0 Last Edit by Michelle Le [facility] on 06/06/23 13:57 UA Blood 2 Donnie/uL Last Edit by Michelle Le [facility] on 06/06/23 13:57 UA Specific Ona 1.015 Last Edit by Michelle Le [facility] on 06/06/23 13:57 UA Ketone Negative Last Edit by Michelle Le [facility] on 06/06/23 13:57 UA Bilirubin 0 mg/dL Last Edit by Michelle Le [facility] on 06/06/23 13:57 UA Glucose 0 mg/dL Last Edit by Michelle Le [facility] on 06/06/23 13:57 Results Reviewed Results Reviewed: Laboratory Last Values Urine pH (Auto) 6.0 06/06/23 13:57 Specific Ona (Auto) 1.015 06/06/23 13:57 Urine Protein (Auto) 0.5 mg/dL 06/06/23 13:57 Glucose (UA)(Auto) 0 mg/dL 06/06/23 13:57 Urine Ketones (Auto) Negative 06/06/23 13:57 Urine Blood (Auto) 2 Donnie/uL 06/06/23 13:57 Urine Nitrite (Auto) Negative 06/06/23 13:57 Urine Bilirubin (Auto) 0 mg/dL 06/06/23 13:57 Urine Urobilinogen (Auto) 0 mg/dL 06/06/23 13:57 Leukocyte Esterase (Auto) 3 Tonio/uL 06/06/23 13:57 Assessment & Plan Assessment & Plan (1) Encounter for supervision of normal in third trimester: Code(s): Z34.93 - Encounter for supervision of normal , unspecified, third trimester Category: Medical Orders: Orders AMB Urinalysis Automated Today Z34.93 - Encounter for supervision of normal , unspecified, third trimester Coding Level of Care Code Donna Diagnoses Encounter for supervision of normal in third trimester Z34.93
[2023-06-06 13:50] VITALS: BP 100/62; BMI 28.3
== END 2023-06-06 14:12 | disposition home or self-care (01) ==
PROVIDERS: PCP Internal Medicine; Visit Provider Advanced Practice Midwife
DX: Z34.93 Encounter for supervision of normal pregnancy, unspecified, third trimester (principal)
CPT/HCPCS: 25942

== ENCOUNTER → 2023-06-06 13:47 | Outpatient (BNVA) | payer OTHER, SELFPAY | PROVIDERS: PCP Internal Medicine; Visit Provider Advanced Practice Midwife | DX: Z34.93 Encounter for supervision of normal pregnancy, unspecified, third trimester (principal) | CPT/HCPCS: 81003; 99212 ==

== ENCOUNTER 2023-06-13 10:33 | Outpatient (AMB) | payer OTHER, SELFPAY ==
--- NOTE | 2023-06-13 10:35 | A.OFFVISPN_ITS ---
Intake Vital Signs 06/13/23 10:36 Height 5 ft 5 in Weight 173 lb BMI 28.8 BP 110/70 Intake Visit Reasons: FOREST Intake Note: The patient agreed to use of a medical record transcriber during this encounter. Scribed for STEPHANIE Whipple by Gwen Kiser medical record transcriber, on 06/13/2023 at 10:52 am EST. Allergies No Known Allergies [No Known Allergies*] Allergy (Verified 06/13/23 10:36) Patient : Yes [facility] Medical History (Updated 04/19/23 @ 14:01 by Elen Salas) Encounter for supervision of normal in third trimester Encounter for supervision of other normal in second trimester Diarrhea during FH: diabetes mellitus Cleft lip and palate Surgical History (Updated 01/15/23 @ 11:00 by Gwen Kiser) Nausea/vomiting in History of repair of congenital cleft palate History of repair of cleft lip Family History Maternal Grandmother Breast cancer Maternal Grandfather No problems noted. Father Diabetes mellitus CAD (coronary artery disease) Myocardial infarction Mother Bipolar 1 disorder, depressed, full remission Fibromyalgia Social History Household Members: Significant Other, Family and Children Both parents involved: Yes Caregiver staying overnight: No Housing: House Are you a primary respiratory care practitioner to a significant other at home: No Do you presently have visiting nurse or other home services: No 75 years or older and lives alone: No Alcohol intake: never Patient Tobacco Use Status: Never used Tobacco Agree to transfusion: Yes service: No Current occupational status: employed 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 Date GA/Weeks Outcome Route Wt Inf Gender Labor Adeline Anesthesia Location Provider Complicate 10/04/16 41 live - full term 6 lb 15 oz Female 11 hrs ot her [facility] [place] JUSTINE Ruggiero none Visit SADI Calculator Estimated Delivery Date Method Current WG Current Estimate 06/26/23 Ultrasound #1 38w 1d Other Estimates 06/19/23 LMP (Certain) 39w 1d 06/27/23 Ultrasound #2 38w 0d Expected Delivery Route/Plan Specific Issues/Plans EDC: 06/26/23 O positive Problem List: 1. Hx cleft lip/palate 2. FH DM-early glucose=81 3. Fibroids 4. SFD-US 03/18/23 41% growth, 34 wks=54% growth NT: nl First trimester screen: negative FAS: EIF noted, plan 3rd trimester follow US. WIC: enrolled Vaccination status: COVID: 1 dose, Covid in 09/2021 Tdap: given 04/19/23 Flu: Social hx: lives w/husb, 6yo daughter Anyi. 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, plans to breast feed Labor support: Max plan: natural, used Nitrous oxide w/her first control: ParaGard OB Visit Log Initial Weight: 139 lb Date -?-?-?-?-?-?-?-?-?-?-?-?- EGA Weight Gest Week Fundal Ht Present FHR move Efface % Edema BP PrePreg We Weight GTT -?-?-?-?-?-?-?-?-?-?-?-?- Glucose LV Protein Blood Type 11/26/22 -?-?-?-?--?-?-?-?-?-?-?-?- 9w 5d 139 lb 2 oz (+2 oz) 144 139 lb 2 oz -?-?-?-?-?-?-?-?-?-?-?-?- 12/14/22 -?--?-?-?-?-?-?-?-?-?-?-?- 12w 2d 139 lb (+0 oz) 12 160 114/60 139 lb -?-?-?-?-?-?-?-?-?-?-?-?- 01/15/23 -?-?-?-?-?-?-?-?-?-?-?-?- 16w 6d 137 lb (-2 lb) 16 150 110/74 137 lb -?-?-?-?-?-?-?-?-?-?-?-?- 02/13/23 -?-?-?-?-?-?-?-?-?-?-?-?- 21w 0d 147 lb (+8 lb) 22 150 100/60 147 lb -?-?-?-?-?-?-?-?-?-?-?-?- 03/13/23 -?-?-?-?-?-?-?-?-?-?-?-?- 25w 0d 149 lb (+10 lb) 22 140 active 112/64 149 lb -?-?-?-?-?-?--?-?-?-?-?-?- 04/05/23 -?-?-?-?-?-?-?-?-?-?-?-?- 28w 2d 154 lb (+15 lb) 26 140 active 108/60 154 lb -?-?-?-?-?-?-?-?-?-?-?-?- 04/19/23 -?-?-?-?-?-?-?-?-?-?-?-?- 30w 2d 153 lb (+14 lb) 27 150 active 108/60 153 lb -?-?-?-?-?-?-?-?-?-?-?-?- 05/03/23 -?-?-?-?-?-?-?-?-?-?-?-?- 32w 2d 161 lb (+22 lb) 30 140 active 100/60 161 lb -?-?-?-?-?-?-?-?-?-?-?-?- 05/16/23 -?-?-?-?-?-?-?-?-?-?-?-?- 34w 1d 164 lb (+25 lb) 28 150 active 112/68 164 lb -?-?-?-?-?-?-?-?-?-?-?-?- 05/30/23 -?-?-?-?-?-?-?-?-?-?-?-?- 36w 1d 171 lb (+32 lb) 36 vtx 150 active 100/64 171 lb -?-?-?-?-?-?-?-?-?-?-?-?- 06/06/23 -?-?-?-?-?-?-?-?-?-?-?-?- 37w 1d 170 lb (+31 lb) 34 vtx 140 active 100/62 170 lb -?-?-?-?-?-?-?-?-?-?-?-?- 06/13/23 -?-?-?-?-?-?-?-?-?-?-?-?- 38w 1d 173 lb (+34 lb) 35 vtx 140 active 110/70 173 lb -?-?-?-?-?-?-?-?-?-?-?-?- Notes Visit Date: 06/13/23 Last Updated by: Yulia Han CNM Note author: Yulia Han CNM/Gwen Kiser medical record transcriber 38.1wk FOREST. Feeling well. Taking PNV. Hydrating well and good appetite Good FM, no LOF, VB or abd pain. Reports sporadic contractions but is not concerning. Discussed: PTL - LOF, VB, abd pain. GBS; negative PEC - headaches: not resolved with 2 regular strength Tylenol doses, visu al disturbances warnings and when to call for further evaluation. Reviewed when to call for any VB, LOF, contractions, Kick counts reviewed and when to call for any decreased FM. Discussed to call the service here for any emergencies/deliveries to be directed to [facility]. RTO 1 wks Visit Date: 06/06/23 Last Updated by: Yulia Han CNM Note author: Yulia Han CNM/Gwen Kiser medical record transcriber 37.1 wk FOREST. Feeling well. Taking PNV. Hydrating well and good appetite Good FM, no LOF, VB or abd pain. She has no questions or concerns today. Prepped at home for baby. 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 Reports having ParaGard after last delivery, would like to have this again. She is not interested in hormonal contraceptives. . Is planning to breastfeed. Discussed: PTL - LOF, VB, abd pain. GBS - negative. PEC - headaches: not resolved with 2 regular strength Tylenol doses, visual disturbances warnings and when to call for further evaluation. Reviewed when to call for any VB, LOF, contractions, Kick counts reviewed and when to call for any decreased FM. Encouraged patient to sign up for patient portal. Discussed to call the service here for any emergencies/deliveries to be directed to [facility]. Prior auth for Hillary signed. RTO 1wk/prn Visit Date: 05/30/23 Last Updated by: Yulia Han CNM Note author: Yulia Han CNM/Gwen Kiser medical record transcriber 36.1 wk FOREST. Feeling well. Taking PNV. Hydrating well and good appetite Good FM, no LOF, VB or abd pain. She has no questions or concerns. Denies vaginal itching or irritation. Pelvic exam offered and to confirm position; she accepts. 1 cm dilated. Discussed: PTL - LOF, VB, abd pain. GBS, GC/CT panel done today. Await results and treat accordingly. PEC - headaches: not resolved with 2 regular strength Tylenol doses, visual disturbances warnings and when to call for further evaluation. Reviewed when to call for any VB, LOF, contractions, Kick counts reviewed and when to call for any decreased FM. Encouraged patient to sign up for patient portal. Discussed to call the service here for any emergencies/deliveries to be directed to [facility]. All of her questions and concerns were addressed to the best of my ability and shared decision making. She is agreeable to plan of care. RTO 1wk Visit Date: 05/16/23 Last Updated by: Gwen Kiser Note author: Yulia Han CNM/Gwen Kiser medical record transcriber 34.1 wk FOREST. Feeling well. Taking PNV. Hydrating well and good appetite Good FM, no LOF, VB or abd pain. She is here with her daughter Anyi. She voices no concerns or complaints. Last US was last week. Discussed: PTL - LOF, VB, abd pain. GBS in 2 weeks. US results- and positioning; breach position. Follow up scheduled. Advised to eat small frequent meals, hydrate well with water and stay cool. PEC - headaches: not resolved with 2 regular strength Tylenol doses, visual disturbances warnings and when to call for further evaluation. Reviewed when to call for any VB, LOF, contractions, Kick counts reviewed and when to call for any decreased FM. Encouraged patient to sign up for patient portal. Discussed to call the service here for any emergencies/deliveries to be directed to [facility]. All of her questions and concerns were addressed to the best of my ability and shared decision making. She is agreeable to plan of care. RTO in 2 weeks. Visit Date: 05/03/23 Last Updated by: Yulia Han CNM Note author: Yulia Han CNM/Gwen Kiser medical record transcriber 32. 2 wk FOREST. Feeling well. Taking PNV. Hydrating well and good appetite Good FM, no LOF, VB or abd pain. She has a upcoming US 05/07/23. Discussed: PTL - LOF, VB, abd pain. Advised to eat small frequent meals, hydrate well with water and stay cool. PEC - headaches: not resolved with 2 regular strength Tylenol doses, visual disturbances warnings and when to call for further evaluation. Reviewed when to call for any VB, LOF, contractions, Kick counts reviewed and when to call for any decreased FM. Encouraged patient to sign up for patient portal. Discussed to call the service here for any emergencies/deliveries to be directed to [facility]. All of her questions and concerns were addressed to the best of my ability and shared decision making. She is agreeable to plan of care. RTO 2wks. Visit Date: 04/19/23 Last Updated by: Yulia Han CNM Note author: Yulia Han CNM/Elen Salas, medical record transcriber 30.2 wk FOREST. Taking PNV. Good FM. Denies LOF, VB or abd pain. Doing well with no concerns. Good appetite and stays well hydrated. She had Growth US done on 04/07/23, records not available. States she is supposed to have repeat US done due to a bright spot noted. Discussed: PTL-LOF, VB, abd pain, ctx and when to call for further ev aluation. PEC - headaches: not resolved with 2 regular strength Tylenol doses, visual disturbances warnings and when to call for further evaluation.? FKC: have something to eat and drink, should have 5 kicks in 1hr or 10 kicks in 2 hrs, if not call immediately for evaluation. Staying well hydrated, drink 8-10 glasses of water per day. Tdap done today. Growth US ordered for small for dates, include eval for EIF 3rd trimester follow up. RTO in 2 weeks. Visit Date: 04/05/23 Last Updated by: Yulia Han CNM Note author: Yulia Han CNM/Gwen Kiser medical record transcriber 28.2 wk FOREST. Feeling well. Taking PNV. Hydrating well and good appetite Good FM, no LOF, VB or abd pain. Reports lumbar pain. Denies lifting anything strenuous. EPDS=7 Discussed: PTL - LOF, VB, abd pain . TDaP handout given. lab work. Recommend pelvic tilt exercises/stretches, heat, massage, consider PT if no improvement. Advised to eat small frequent meals and stay cool and hydrated. PEC - headaches: not resolved with 2 regular strength Tylenol doses, visual disturbances warnings and when to call for further evaluation. Reviewed when to call for any VB, LOF, contractions, Kick counts reviewed and when to call for any decreased FM. Encouraged patient to sign up for patient portal. Discussed to call the service here for any emergencies/deliveries to be directed to [facility]. Visit Date: 03/13/23 Last Updated by: Yulia Han CNM Note author: Yulia Han CNM/Gwen Kiser medical record transcriber 25 wk FOREST. Feeling well. Taking PNV. Hydrating well and good appetite Good FM, no LOF, VB or abd pain. Reports possibly being sick occasional nausea/vomiting with diarrhea. Denies being sensitive to diary or gluten or flu-like symptoms. Discussed: PTL - LOF, VB, abd pain. Schedule growth US-SFD. FAS report from [facility] requesting. OB appointment in 3 weeks and glucose testing same day. BRAT diet for nausea Advised to eat small frequent meals and stay cool and hydrated. Recommend reading and online classes/research for educational purposes. PEC - headaches: not resolved with 2 regular strength Tylenol doses, visual disturbances warnings and when to call for further evaluation. Reviewed when to call for any VB, LOF, contractions, Kick counts reviewed and when to call for any decreased FM. Discussed to call the service here for any emergencies/deliveries to be directed to [facility]. Visit Date: 02/13/23 Last Updated by: Yulia Han CNM Note author: Yulia Han CNM/Gwen Kiser medical record transcriber 21 wk FOREST. Feeling well. Taking PNV. Good FM, no LOF, VB. She recently had a US last wk., report not available. She is experiencing occasional abdominal cramping and lower back pain. Denies Yogesh Betancourt. Admits to needing to hydrate better today. Discussed: PTL - LOF, VB, abd pain. Recommend 3 glasses 8 ounces of water to help with abdominal cramping, hot weather this week-stay cool, increase fluids. If cramping gets worse report to [facility]. Reviewed recent lab results. Advised to eat healthy including small frequent meals every 2 hrs and stay hydrated in hot weather. PEC - headaches: not resolved with 2 regular strength. Tylenol doses, visual disturbances warnings and when to call for further evaluation. Reviewed when to call for any VB, LOF, contractions, Kick counts reviewed and when to call for any decreased FM. Discussed to call the service here for any emergencies/deliveries to be directed to [facility]. Unable to void, plan urine in lab today for clean catch. RTO 4 wks, prn. Visit Date: 01/15/23 Last Updated by: Yulia Han CNM Note author: Yulia Han CNM/Gwen Kiser medical record transcriber 16.6wk FOREST. Feeling well. Taking PNV. quickening noted, no LOF, VB or abd pain. She reports over the past weekend she had nausea, vomiting and diarrhea with slight abdominal cramping. Appetite slowly improving. No other family members were sick. Staying well hydrated. Call office if not tolerating fluids and not urinating. FAS ordered. PEC - headaches: not resolved with 2 regular strength Tylenol doses, visual disturbances warnings and when to call for further evaluation. Reviewed when to call for any VB, LOF, contractions, Kick counts reviewed and when to call for any decreased FM. Encouraged patient to sign up for patient portal. Discussed to call the service here for any emergencies/deliveries to be directed to [facility]. RTO 4wks. Visit Date: 12/14/22 Last Updated by: Yuliana Lawrence CNM Patient is here at 12 weeks and 2 days for her new OB physical. 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 She got the next cycle and we are using the SADI by her for early ultrasound which gave a 1 week different SADI we are using the 06/26/2023 SADI. She had her nuchal translucency ultrasound done a week ago and that was normal the 1st trimester screening is still pending. All of her lab work was reviewed and is all normal she is not anemic her blood type is O-positive her early glucose was 81. There nausea is finally starting to get better she did throw up a little bit this morning but the previous 3 morning she did not so she is feeling better about that. She did score 7 on the EPDS screening today but she does not think she has any real worries or concerns she thinks her worries are actually the normal ones about what it will be like to have another baby and manage everything.. PE was done there was slight bleeding when the speculum opened and touched the side of her cervix from the surface capillaries. I did show it to her so she would not be worried about where at we had come from. Her cervix did not appear unduly friable just normal for per early . Uterus is approximately 12 weeks size but slightly retroverted. Patient states she did not even show with her previous in till 18-20 weeks. Anticipate the same this time. Will be ordering her anatomy scan ultrasound in approximately 7 weeks (6-8) that will be done at [facility] at [facility]. RTC 4 weeks. Visit Date: 11/26/22 Last Updated by: Ayanna Miranda Nancy is here for nurse intake appt. She is a pleasant, 27 yo in good health, with LMP 09/12/22 SADI by dates 06/21/23. US on 11/01/22 at 6w1d gives SADI of 06/26/23 and GA by US today of 9w5d. FHT found 144. 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 She also has FH of diabetes and a 1 hr glucose has been ordered. Maternal grandmother d/t breast cancer, paternal grandfather d/t lung cancer. Pt's Mom has fibromyalgia and bipolar disorder. Dad has CAD, NV, bipolar disorder. Nancy and her significant other of 8 years are excited about the . Her partner is the FOB of both pregnancies. Their daughter is 6 yo. She reports her SO is supportive and she denies any h/o domestic abuse. Nancy takes her PNV in the evening. She does have nausea and vomiting in the morning which she reports is beginning to resolve. We discussed small frequent meals and trying dry crackers at first awakening before getting out of bed to help nausea. She declined Unisom/B6. Pt reports she has not had Covid-19 and has been vaccinated x1, no boosters. Her BMI is 27.1 and prepregnancy weight is 139 lbs. OB PE was scheduled for 12/14/22, labs with early glucose ordered as well as NT US at [facility]. She is aware that she will deliver at [facility]. Pt was given the folder. We discussed danger signs, MD coverage 08/04 and how to reach MD after hours. First trimester education was also reviewed. Pt verbalizes understanding and agrees with plan. No further questions at this time. Assessment & Plan Assessment & Plan (1) Encounter for supervision of normal in third trimester: Code(s): Z34.93 - Encounter for supervision of normal , unspecified, third trimester Category: Medical Coding Level of Care Code [place] Diagnoses Encounter for supervision of normal in third trimester Z34.93
[2023-06-13 10:36] VITALS: BP 110/70; BMI 28.8
== END 2023-06-13 11:06 | disposition home or self-care (01) ==
LOC: HO.HWSW 10:33
PROVIDERS: PCP Internal Medicine; Visit Provider Advanced Practice Midwife
DX: Z34.93 Encounter for supervision of normal pregnancy, unspecified, third trimester (principal)
CPT/HCPCS: 25942

== ENCOUNTER → 2023-06-13 10:33 | Outpatient (BNVA) | payer OTHER, SELFPAY | PROVIDERS: PCP Internal Medicine; Visit Provider Advanced Practice Midwife | DX: Z34.93 Encounter for supervision of normal pregnancy, unspecified, third trimester (principal) | CPT/HCPCS: 99212 ==

== ENCOUNTER 2023-06-19 07:47 | Outpatient (AMB) | payer OTHER, SELFPAY ==
[2023-06-19 07:49] VITALS: BP 92/60; BMI 29.1
--- NOTE | 2023-06-19 07:49 | A.OFFVISPN_ITS ---
Intake Vital Signs 06/19/23 07:49 Height 5 ft 5 in Weight 175 lb BMI 29.1 BP 92/60 Intake Visit Reasons: segundo Intake Note: The patient agreed to use of a medical assistant instructor during this encounter. Scribed for STEPHANIE Whipple by Gwen Kiser, medical assistant instructor, on 06/19/2023 . Allergies No Known Allergies [No Known Allergies*] Allergy (Verified 06/19/23 07:49) Patient : Yes [facility] Medical History (Updated 04/19/23 @ 14:01 by Elen Salas) Encounter for supervision of normal in third trimester Encounter for supervision of other normal in second trimester Diarrhea during FH: diabetes mellitus Cleft lip and palate Surgical History (Updated 01/15/23 @ 11:00 by Gwen Kiser) Nausea/vomiting in History of repair of congenital cleft palate History of repair of cleft lip Family History Maternal Grandmother Breast cancer Maternal Grandfather No problems noted. Father Diabetes mellitus CAD (coronary artery disease) Myocardial infarction Mother Bipolar 1 disorder, depressed, full remission Fibromyalgia Social History Household Members: Significant Other, Family and Children Both parents involved: Yes Caregiver staying overnight: No Housing: House Are you a primary palliative care specialist to a significant other at home: No Do you presently have visiting nurse or other home services: No 75 years or older and lives alone: No Alcohol intake: never Patient Tobacco Use Status: Never used Tobacco Agree to transfusion: Yes service: No Current occupational status: employed 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 Date GA/Weeks Outcome Route Wt Inf Gender Labor Adeline Anesthesia Location Provider Complicate 10/04/16 41 live - full term 6 lb 15 oz Female 11 hrs ot her [facility] Ruggiero none Visit SADI Calculator Estimated Delivery Date Method Current WG Current Estimate 06/26/23 Ultrasound #1 39w 0d Other Estimates 06/19/23 LMP (Certain) 40w 0d 06/27/23 Ultrasound #2 38w 6d Expected Delivery Route/Plan Specific Issues/Plans EDC: 06/26/23 O positive Problem List: 1. Hx cleft lip/palate 2. FH DM-early glucose=81 3. Fibroids 4. SFD-US 03/18/23 41% growth, 34 wks=54% growth NT: nl First trimester screen: negative FAS: EIF noted, plan 3rd trimester follow US. WIC: enrolled Vaccination status: COVID: 1 dose, Covid in 09/2021 Tdap: given 04/19/23 Flu: Social hx: lives w/husb, 6yo daughter Anyi. 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 Labor support: Max plan: natural, used Nitrous oxide w/her first control: ParaGard OB Visit Log Initial Weight: 139 lb Date -?-?-?-?-?-?-?-?-?-?-?-?- EGA Weight Gest Week Fundal Ht Present FHR move Efface % Edema BP PrePreg We Weight GTT -?-?-?-?-?-?-?-?-?-?-?-?- Glucose LV Protein Blood Type 11/26/22 -?-?-?-?-?-?-?-?-?-?-?-?- 9w 5d 139 lb 2 oz (+2 oz) 144 139 lb 2 oz -?-?-?-?-?-?-?-?-?-?-?-?- 12/14/22 -?-?-?-?-?-?-?-?-?-?-?-?- 12w 2d 139 lb (+0 oz) 12 160 114/60 139 lb -?-?-?-?-?-?-?-?-?-?-?-?- 01/15/23 -?-?-?-?-?--?-?-?-?-?-?-?- 16w 6d 137 lb (-2 lb) 16 150 110/74 137 lb -?-?-?-?-?-?-?-?-?-?-?-?- 02/13/23 -?-?-?-?-?-?-?-?-?-?-?-?- 21w 0d 147 lb (+8 lb) 22 150 100/60 147 lb -?-?-?-?-?-?-?-?-?-?-?-?- 03/13/23 -?-?-?-?-?-?-?-?-?-?-?-?- 25w 0d 149 lb (+10 lb) 22 140 active 112/64 149 lb -?-?-?-?-?-?-?-?-?-?-?-?- 04/05/23 -?-?-?-?-?-?-?-?-?-?-?-?- 28w 2d 154 lb (+15 lb) 26 140 active 108/60 154 lb -?-?-?-?-?-?-?-?-?-?-?--?- 04/19/23 -?-?-?-?-?-?-?-?-?-?-?-?- 30w 2d 153 lb (+14 lb) 27 150 active 108/60 153 lb -?-?-?-?-?-?-?-?-?-?-?-?- 05/03/23 -?-?-?-?-?-?-?-?-?-?-?-?- 32w 2d 161 lb (+22 lb) 30 140 active 100/60 161 lb -?-?-?-?-?-?-?-?-?-?-?-?- 05/16/23 -?-?-?-?-?-?-?-?-?-?-?-?- 34w 1d 164 lb (+25 lb) 28 150 active 112/68 164 lb -?-?-?-?-?-?-?-?-?-?-?-?- 05/30/23 -?-?-?-?-?-?-?-?-?-?-?-?- 36w 1d 171 lb (+32 lb) 36 vtx 150 active 100/64 171 lb -?-?-?-?-?-?-?-?-?-?-?-?- 06/06/23 -?-?-?-?-?-?-?-?-?-?-?-?- 37w 1d 170 lb (+31 lb) 34 vtx 140 active 100/62 170 lb -?-?-?-?-?-?-?-?-?-?-?-?- 06/13/23 -?-?-?-?-?-?-?-?-?-?-?-?- 38w 1d 173 lb (+34 lb) 35 vtx 140 active 110/70 173 lb -?-?-?-?-?-?-?-?-?-?-?-?- 06/19/23 -?-?-?-?-?-?-?-?-?-?-?-?- 39w 0d 175 lb (+36 lb) 35 vtx 140 active 92/60 175 lb -?-?-?-?-?-?-?-?-?-?-?-?- Notes Visit Date: 06/19/23 Last Updated by: Yulia Han CNM Note author: Yulia Han CNM/Gwen Kiser medical assistant instructor 39 wk SEGUNDO. Feeling well. Taking PNV. Hydrating well and good appetite Good FM, no LOF, VB or abd pain. Reports she is feeling slight pelvic pressure, recently had BHUC's frequently x1d. Rx for breast pump when insurance info is obtain per pt. request. Discussed: LOF, VB, abd pain. s/s labor and when to call. PEC - headaches: not resolved with 2 regular strength Tylenol doses, visual disturbances warnings and when to call for further evaluation. Reviewed when to call for any VB, LOF, contractions, Kick counts reviewed and when to call for any decreased FM. Encouraged patient to sign up for patient portal. Discussed to call the service here for any emergencies/deliveries to be directed to [facility]. All of her questions and concerns were addressed to the best of my ability and shared decision making. She is agreeable to plan of care. RTO 1 wk./prn Visit Date: 06/13/23 Last Updated by: Yulia Han CNM Note author: Yulia Han CNM/Gwen Kiser medical assistant instructor 38.1wk SEGUNDO. Feeling well. Taking PNV. Hydrating well and good appetite Good FM, no LOF, VB or abd pain. Reports sporadic contractions but is not concerning. Discussed: PTL - LOF, VB, abd pain. GBS; negative PEC - headaches: not resolved with 2 regular strength Tylenol doses, visual disturbances warnings and when to call for further evaluation. Reviewed when to call for any VB, LOF, contractions, Kick counts reviewed and when to call for any decreased FM. Discussed to call the service here for any emergencies/deliveries to be directed to [facility]. RTO 1 wks Visit Date: 06/06/23 Last Updated by: Yulia Han CNM Note author: Yulia Han CNM/Gwen Kiser medical assistant instructor 37.1 wk SEGUNDO. Feeling well. Taking PNV. Hydrating well and good appetite Good FM, no LOF, VB or abd pain. She has no questions or concerns today. Prepped at home for baby. 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 Reports having ParaGard after last delivery, would like to have this again. She is not interested in hormonal contraceptives. . Is planning to breastfeed. Discussed: PTL - LOF, VB, abd pain. GBS - negative. PEC - headaches: not resolved with 2 regular strength Tylenol doses, visual disturbances warnings and when to call for further evaluation. Reviewed when to call for any VB, LOF, contractions, Kick counts reviewed and when to call for any decreased FM. Encouraged patient to sign up for patient portal. Discussed to call the service here for any emergencies/deliveries to be directed to [facility]. Prior auth for ParaGard signed. RTO 1wk/prn Visit Date: 05/30/23 Last Updated by: Yulia Han CNM Note author: Yulia Han CNM/Gwen Kiser medical assistant instructor 36.1 wk SEGUNDO. Feeling well. Taking PNV. Hydrating well and good appetite Good FM, no LOF, VB or abd pain. She has no questions or concerns. Denies vaginal itching or irritation. Pelvic exam offered and to confirm position; she accepts. 1 cm dilated. Discussed: PTL - LOF, VB, abd pain. GBS, GC/CT panel done today. Await results and treat accordingly. PEC - headaches: not resolved with 2 regular strength Tylenol doses, visual disturbances warnings and when to call for further evaluation. Reviewed when to call for any VB, LOF, contractions, Kick counts reviewed and when to call for any decreased FM. Encouraged patient to sign up for patient portal. Discussed to call the service here for any emergencies/deliveries to be directed to [facility]. All of her questions and concerns were addressed to the best of my ability and shared decision making. She is agreeable to plan of care. RTO 1wk Visit Date: 05/16/23 Last Updated by: Gwen Kiser Note author: Yulia Han CNM/Gwen Kiser medical assistant instructor 34.1 wk SEGUNDO. Feeling well. Taking PNV. Hydrating well and good appetite Good FM, no LOF, VB or abd pain. She is here with her daughter Anyi. She voices no concerns or complaints. Last US was last week. Discussed: PTL - LOF, VB, abd pain. GBS in 2 weeks. US results- and positioning; breach position. Follow up scheduled. Advised to eat small frequent meals, hydrate well with water and stay cool. PEC - headaches: not resolved with 2 regular strength Tylenol doses, visual disturbances warnings and when to call for further evaluation. Reviewed when to call for any VB, LOF, contractions, Kick counts reviewed and when to call for any decreased FM. Encouraged patient to sign up for patient portal. Discussed to call the service here for any emergencies/deliveries to be directed to [facility]. All of her questions and concerns were addressed to the best of my ability and shared decision making. She is agreeable to plan of care. RTO in 2 weeks. Visit Date: 05/03/23 Last Updated by: Yulia Han CNM Note author: Yulia Han CNM/Gwen Kiser medical assistant instructor 32. 2 wk SEGUNDO. Feeling well. Taking PNV. Hydrating well and good appetite Good FM, no LOF, VB or abd pain. She has a upcoming US 05/07/23. Discussed: PTL - LOF, VB, abd pain. Advised to eat small frequent meals, hydrate well with water and stay cool. PEC - headaches: not resolved with 2 regular strength Tylenol doses, visual disturbances warnings and when to call for further evaluation. Reviewed when to call for any VB, LOF, contractions, Kick counts reviewed and when to call for any decreased FM. Encouraged patient to sign up for patient portal. Discussed to call the service here for any emergencies/deliveries to be directed to [facility]. All of her questions and concerns were addressed to the best of my ability and shared decision making. She is agreeable to plan of care. RTO 2wks. Visit Date: 04/19/23 Last Updated by: Yulia Han CNM Note author: Yulia Han CNM/Elen Salas, medical assistant instructor 30.2 wk SEGUNDO. Taking PNV. Good FM. Denies LOF, VB or abd pain. Doing well with no concerns. Good appetite and stays well hydrated. She had Growth US done on 04/07/23, records not available. States she is supposed to have repeat US done due to a bright spot noted. Discussed: PTL-LOF, VB, abd pain, ctx and when to call for further evaluation. PEC - headaches: not resolved with 2 regular strength Tylenol doses, visual disturbances warnings and when to call for further evaluation.? FKC: have something to eat and drink, should have 5 kicks in 1hr or 10 kicks in 2 hrs, if not call immediately for evaluation. Staying well hydrated, drink 8-10 glasses of water per day. Tdap done today. Growth US ordered for small for dates, include eval for EIF 3rd trimester follow up. RTO in 2 weeks. Visit Date: 04/05/23 Last Updated by: Yulia Han CNM Note author: Yulia Han CNM/Gwen Kiser medical assistant instructor 28.2 wk SEGUNDO. Feeling well. Taking PNV. Hydrating well and good appetite Good FM, no LOF, VB or abd pain. Reports lumbar pain. Denies lifting anything strenuous. EPDS=7 Discussed: PTL - LOF, VB, abd pain . TDaP handout given. lab work. Recommend pelvic tilt exercises/stretches, heat, massage, consider PT if no improvement. Advised to eat small frequent meals and stay cool and hydrated. PEC - headaches: not resolved with 2 regular strength Tylenol doses, visual disturbances warnings and when to call for further evaluation. Reviewed when to call for any VB, LOF, contractions, Kick counts reviewed and when to call for any decreased FM. Encouraged patient to sign up for patient portal. Discussed to call the service here for any emergencies/deliveries to be directed to [facility]. Visit Date: 03/13/23 Last Updated by: Yulia Han CNM Note author: Yulia Hna CNM/Gwen Kiser medical assistant instructor 25 wk SEGUNDO. Feeling well. Taking PNV. Hydrating well and good appetite Good FM, no LOF, VB or abd pain. Reports possibly being sick occasional nausea/vomiting with diarrhea. Denies being sensitive to diary or gluten or flu-like symptoms. Discussed: PTL - LOF, VB, abd pain. Schedule growth US-SFD. FAS report from [facility] requesting. OB appointment in 3 weeks and glucose testing same day. BRAT diet for nausea Advised to eat small frequent meals and stay cool and hydrated. Recommend reading and online classes/research for educational purposes. PEC - headaches: not resolved with 2 regular strength Tylenol doses, visual disturbances warnings and when to call for further evaluation. Reviewed when to call for any VB, LOF, contractions, Kick counts reviewed and when to call for any decreased FM. Discussed to call the service here for any emergencies/deliveries to be directed to [facility]. Visit Date: 02/13/23 Last Updated by: Yulia Han CNM Note author: Yulia Han CNM/Gwen Kiser medical assistant instructor 21 wk SEGUNDO. Feeling well. Taking PNV. Good FM, no LOF, VB. She recently had a US last wk., report not available. She is experiencing occasional abdominal cramping and lower back pain. Denies Yogesh Betancourt. Admits to needing to hydrate better today. Discussed: PTL - LOF, VB, abd pain. Recommend 3 glasses 8 ounces of water to help with abdominal cramping, hot weather this week-stay cool, increase fluids. If cramping gets worse report to [facility]. Reviewed recent lab results. Advised to eat healthy including small frequent meals every 2 hrs and stay hydrated in hot weather. PEC - headaches: not resolved with 2 regular strength. Tylenol doses, visual disturbances warnings and when to call for further evaluation. Reviewed when to call for any VB, LOF, contractions, Kick counts reviewed and when to call for any decreased FM. Discussed to call the service here for any emergencies/deliveries to be directed to [facility]. Unable to void, plan urine in lab today for clean catch. RTO 4 wks, prn. Visit Date: 01/15/23 Last Updated by: Yulia Han CNM Note author: Yulia Han CNM/Gwen Kiser medical assistant instructor 16.6wk SEGUNDO. Feeling well. Taking PNV. quickening noted, no LOF, VB or abd pain. She reports over the past weekend she had nausea, vomiting and diarrhea with slight abdominal cramping. Appetite slowly improving. No other family members were sick. Staying well hydrated. Call office if not tolerating fluids and not urinating. FAS ordered. PEC - headaches: not resolved with 2 regular strength Tylenol doses, visual disturbances warnings and when to call for further evaluation. Reviewed when to call for any VB, LOF, contractions, Kick counts reviewed and when to call for any decreased FM. Encouraged patient to sign up for patient portal. Discussed to call the service here for any emergencies/deliveries to be directed to [facility]. RTO 4wks. Visit Date: 12/14/22 Last Updated by: Yuliana Lawrence CNM Patient is here at 12 weeks and 2 days for her new OB physical. She did have her full director hematology physical at the time that she had her ParaGard IUD removed on September 27 and her Pap smear was done then but we did not do cultures at that visit because she had no STD concerns. She got the next cycle and we are using the SADI by her for early ultrasound which gave a 1 week different SADI we are using the 06/26/2023 SADI. She had her nuchal translucency ultrasound done a week ago and that was normal the 1st trimester screening is still pending. All of her lab work was reviewed and is all normal she is not anemic her blood type is O-positive her early glucose was 81. There nausea is finally starting to get better she did throw up a little bit this morning but the previous 3 morning she did not so she is feeling better about that. She did score 7 on the EPDS screening today but she does not think she has any real worries or concerns she thinks her worries are actually the normal ones about what it will be like to have another baby and manage everything.. PE was done there was slight bleeding when the speculum opened and touched the side of her cervix from the surface capillaries. I did show it to her so she would not be worried about where at we had come from. Her cervix did not appear unduly friable just normal for per early . Uterus is approximately 12 weeks size but slightly retroverted. Patient states she did not even show with her previous in till 18-20 weeks. Anticipate the same this time. Will be ordering her anatomy scan ultrasound in approximately 7 weeks (6-8) that will be done at [facility] at [facility]. RTC 4 weeks. Visit Date: 11/26/22 Last Updated by: Ayanna Miranda Nancy is here for nurse intake appt. She is a pleasant, 27 yo in good health, with LMP 09/12/22 SADI by dates 06/21/23. US on 11/01/22 at 6w1d gives SADI of 06/26/23 and GA by US today of 9w5d. FHT found 144. 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 She also has FH of diabetes and a 1 hr glucose has been ordered. Maternal grandmother d/t breast cancer, paternal grandfather d/t lung cancer. Pt's Mom has fibromyalgia and bipolar disorder. Dad has CAD, [place], bipolar disorder. Nancy and her significant other of 8 years are excited about the . Her partner is the FOB of both pregnancies. Their daughter is 6 yo. She reports her SO is supportive and she denies any h/o domestic abuse. Nancy takes her PNV in the evening. She does have nausea and vomiting in the morning which she reports is beginning to resolve. We discussed small frequent meals and trying dry crackers at first awakening before getting out of bed to help nausea. She declined Unisom/B6. Pt reports she has not had Covid-19 and has been vaccinated x1, no boosters. Her BMI is 27.1 and prepregnancy weight is 139 lbs. OB PE was scheduled for 12/14/22, labs with early glucose ordered as well as NT US at [facility]. She is aware that she will deliver at [facility]. Pt was given the folder. We discussed danger signs, MD coverage 08/04 and how to reach MD after hours. First trimester education was also reviewed. Pt verbalizes understanding and agrees with plan. No further questions at this time. Results AMB Urinalysis, Automated UA Leukoctes 3 Tonio/uL Last Edit by DAKSHA Zavala on 06/19/23 07:57 UA Nitrite Negative Last Edit by DAKSHA Zavala on 06/19/23 07:57 UA Urobilinogen 0 mg/dL Last Edit by DAKSHA Zavala on 06/19/23 07:5 7 UA Protein 0.5 mg/dL Last Edit by DAKSHA Zavala on 06/19/23 07:57 UA pH 7.0 Last Edit by DAKSHA Zavala on 06/19/23 07:57 UA Blood 0.5 Donnie/uL Last Edit by DAKSHA Zavala on 06/19/23 07:57 UA Specific Harrison 1.015 Last Edit by DAKSHA Zavala on 06/19/23 07:57 UA Ketone Negative Last Edit by DAKSHA Zavala on 06/19/23 07:57 UA Bilirubin 0 mg/dL Last Edit by DAKSHA Zavala on 06/19/23 07:57 UA Glucose 0 mg/dL Last Edit by DAKSHA Zavala on 06/19/23 07:57 Results Reviewed Results Reviewed: Laboratory Last Values Urine pH (Auto) 7.0 06/19/23 07:56 Specific Harrison (Auto) 1.015 06/19/23 07:56 Urine Protein (Auto) 0.5 mg/dL 06/19/23 07:56 Glucose (UA)(Auto) 0 mg/dL 06/19/23 07:56 Urine Ketones (Auto) Negative 06/19/23 07:56 Urine Blood (Auto) 0.5 Donnie/uL 06/19/23 07:56 Urine Nitrite (Auto) Negative 06/19/23 07:56 Urine Bilirubin (Auto) 0 mg/dL 06/19/23 07:56 Urine Urobilinogen (Auto) 0 mg/dL 06/19/23 07:56 Leukocyte Esterase (Auto) 3 Tonio/uL 06/19/23 07:56 Assessment & Plan Assessment & Plan (1) Encounter for supervision of normal in third trimester: Code(s): Z34.93 - Encounter for supervision of normal , unspecified, third trimester Category: Medical Orders: Orders AMB Urinalysis Automated Today Z34.93 - Encounter for supervision of normal , unspecified, third trimester Coding Level of Care Code [place] Diagnoses Encounter for supervision of normal in third trimester Z34.93
== END 2023-06-19 08:08 | disposition home or self-care (01) ==
PROVIDERS: PCP Internal Medicine; Visit Provider Advanced Practice Midwife
DX: Z34.93 Encounter for supervision of normal pregnancy, unspecified, third trimester (principal)
CPT/HCPCS: 25942; 59426

== ENCOUNTER → 2023-06-19 07:47 | Outpatient (BNVA) | payer OTHER, SELFPAY | PROVIDERS: PCP Internal Medicine; Visit Provider Advanced Practice Midwife | DX: Z34.93 Encounter for supervision of normal pregnancy, unspecified, third trimester (principal) | CPT/HCPCS: 81003; 99212 ==